=== PATIENT | male | born 1965 | race Caucasian/White ===

== ENCOUNTER 2019-02-06 18:08 | Inpatient (IN) | payer OTHER, BC ==
[~2019-02-06] VITALS: Ht 167.6 cm; Wt 81.5 kg
[~2019-02-06 18:08] MED LIST: CEPH500 PO; Cleocin HCl150 MG PO; HYDACE10B PO; HYDACE5 PO; NAPR500 PO; OXYACE5T PO; PENVK500 PO; PROM25 PO; Percocet 5-3251 EACH PO; RXOXYACE PO; TRAM50 PO; VITAMINS
[2019-02-06] MEDS ORDERED: OMEPRAZOLE20 MG PO (18:51)
[2019-02-06] MEDS ORDERED: OXYC5 PO (18:52)
[2019-02-06 19:00] LABS: BASOPHILS ABSOLUTE AUTO 0.05 K/mm3 (0.00-0.23); BASOPHILS PERCENT AUTO 1 % (0-2); Hematocrit 37.2 % (37.0-53.0); Hemoglobin 12.5 g/dL (13.5-17.5); Mean Corpuscular HGB 30.1 pg (26.0-34.0); Mean Corpuscular HGB Conc 33.6 g/dL (31.5-36.5); Mean Corpuscular Volume 90 fL (80-100); Mean Platelet Volume 10.8 fL (9.1-12.4); Platelet Count 172 K/mm3 (150-400); RDW Standard Deviation 46.6 fL (35.1-46.3); Red Blood Cell Count 4.15 M/mm3 (4.30-5.90); White Blood Cell Count 10.93 K/mm3 (4.00-11.30)
[2019-02-06 19:04] LABS: Influenza A Negative (NEGATIVE); Influenza B Negative (NEGATIVE)
[2019-02-06 19:07] LABS: EOSINOPHILS ABSOLUTE AUTO 0.06 K/mm3 (0.00-0.68); EOSINOPHILS PERCENT AUTO 1 % (0-6); IMMATURE GRAN ABSOLUTE AUTO 0.09 K/mm3 (0.00-0.10); IMMATURE GRAN PERCENT AUTO 1 % (0-1); LYMPHOCYTES ABSOLUTE AUTO 0.34 K/mm3 (0.84-5.20); LYMPHOCYTES PERCENT AUTO 3 % (21-46); MONOCYTES ABSOLUTE AUTO 0.22 K/mm3 (0.16-1.47); MONOCYTES PERCENT AUTO 2 % (4-13); NEUTROPHILS ABSOLUTE AUTO 10.17 K/mm3 (1.96-9.15); NEUTROPHILS PERCENT AUTO 93 % (41-73)
[2019-02-06 19:19] LABS: Alanine Aminotransfer (ALT/SGP 32 U/L (12-78); Albumin, Blood 2.3 g/dL (3.4-5.0); Albumin/Globulin Ratio 0.6 (0.8-1.8); Alk Phos 138 U/L (50-136); Anion Gap 8 mmol/L (6-16); Aspartate Aminotrans (AST/SGOT 16 U/L (12-37); Bilirubin, Total 1.1 mg/dL (0.1-1.0); Blood Urea Nitrogen 15 mg/dL (8-24); Bun/Creatinine Ratio 13.6 (12.0-20.0); CO2, Blood 23 mmol/L (21-32); Calcium, Blood 8.7 mg/dL (8.5-10.1); Chloride, Blood 104 mmol/L (98-108); Glomerular Filtration Rate >60 (60-); Glucose, Blood 151 mg/dL (70-99); Potassium, Blood 3.9 mmol/L (3.5-5.5); Sodium, Blood 135 mmol/L (136-145); Total Protein, Blood 6.3 g/dL (6.4-8.2); Troponin I <0.015 ng/mL (0.000-0.040)
[2019-02-06] MEDS ORDERED: IBU800 MG PO (19:40)
[2019-02-06] MEDS ORDERED: SERT100 PO (20:23)
[2019-02-06] MEDS ORDERED: ACET500 PO (20:24)
[2019-02-06] MEDS ORDERED: BUPR75 PO (20:48)
[2019-02-06] MEDS ORDERED: Prazosin HCl2 MG PO (20:50)
[2019-02-06] MEDS ORDERED: Hydroxyzine HCl50 MG PO (20:50)
[2019-02-07 04:40] LABS: Alanine Aminotransfer (ALT/SGP 29 U/L (12-78); Albumin, Blood 2.1 g/dL (3.4-5.0); Albumin/Globulin Ratio 0.5 (0.8-1.8); Alk Phos 149 U/L (50-136); Anion Gap 6 mmol/L (6-16); Aspartate Aminotrans (AST/SGOT 14 U/L (12-37); Bilirubin, Total 1.1 mg/dL (0.1-1.0); Blood Urea Nitrogen 15 mg/dL (8-24); Bun/Creatinine Ratio 13.3 (12.0-20.0); CO2, Blood 25 mmol/L (21-32); Calcium, Blood 8.5 mg/dL (8.5-10.1); Chloride, Blood 107 mmol/L (98-108); Creatinine, Blood 1.13 mg/dL (0.60-1.20); Glomerular Filtration Rate >60 (60-); Glucose, Blood 165 mg/dL (70-99); Potassium, Blood 3.7 mmol/L (3.5-5.5); Sodium, Blood 138 mmol/L (136-145); Total Protein, Blood 6.1 g/dL (6.4-8.2)
--- NOTE | 2019-02-07 05:33 | NUR ---
SHIFT SUMMARY PT NEW ER ADMIT THIS EVENING. PT FEELING OVERALL VERY ILL. SOME DIFFICULTLY WITH BREATHING. OXYGEN TURNED UP TO 4 L O2 NC FROM 1 L O2 NC TO KEEP O2 SATS GREATER THAN 90%. APPEARS MORE COMFORTABLE AT THIS TIME. PT ALSO TACHYCARDIC THIS AM WITH HEART RATE IN THE 120'S AND SLIGHTLY FEBRILE AT 100.[address] HASTINGS[address] TYLENOL ORDERED AND GIVEN. OTHERWISE NO NEW ORDERS AT THIS TIME. PT TEMPERATURE CAME DOWN TO 99.3. PT OVERALL FEELING SLIGHTLY BETTER. PT MEDICATED X 2 FOR GENERALIZED "BONE" PAIN WITH 5 MG ROXICODONE. PT RESTING IN BED AT THIS TIME. WILL CONTINUE TO MONITOR.
--- NOTE | 2019-02-07 16:29 | NUR ---
SHIFT SUMMARY: THIS NURSE TOOK OVER CARE FOR THIS PT THIS AFTERNOON. UPON ASSESSMENT PT IS SOB, CLAMMY, DIAPHORETIC AND HAS A LOW GRADE TEMP. HIS O2 SAT IS IN THE MID TO HIGH 80'S ON 4 LPM AND PT PULSE WAS IN THE 108-110 RANGE. THE OFFGOING RN STATED THAT HE HAS BEEN RECEIVING IV ABO FOR A DX OF PNA. RT WAS CALLED TO ROOM AND FELT WITH PT DX IT WAS OK TO CONTINUE WITH CURRENT TX AND CONTINUE TO MONITOR. O2 WAS BUMPED UP TO 5 LPM AND HOB ELEVATED. AND O2 CAME UP TO THE HIGH 80'S TO LOW 90'S. THIS NURSE ROUNDED ON THE PT WITHIN 30 TO FIND HAD NO IMPROVEMENT. DR CORRAL WAS NOTIFIED AND GAVE ORDERS FOR A BREATHING TX FROM RT, TELE AND A BOLUS OF IV FLUIDS. THE PT AND WERE NOTIFIED OF THIS TX PLAN AND THANKFUL. RT ARRIVED TO ROOM FOR RT TX AND PT IS RESTING IN BED WITH AT BEDSIDE. ALSO ORDERED A PROJECTOR BOOTH OPERATOR CONSULT WHICH WAS ATTEMPTED TO BE CALLED IN BUT THE DOCTOR WAS IN A PROCEDURE AND ASKED THAT THIS NURSE CALL BACK IN 20 MINUTES. CHARGE NURSE IS AWARE.
--- NOTE | 2019-02-07 18:04 | NUR ---
RECREATION THERAPIST SAW PT AT BEDSIDE AND ORDERED A BIPAP. DOCTOR ALSO ORDERED PT TO BE TRANSFERRED TO PCU. PT AND FAMILY WERE NOTIFIED OF TRANSFER AND TX PLAN AND ARE IN AGREEMENT. REPORT WAS CALLED TO PCU NURSE MUNA. ALL BELONGINGS WERE SENT WITH PT. CHARGE NURSE IS AWARE. PT WAS TRANSFERRED WITH X 2 ASSIST IN HIS BED TO PCU.
--- NOTE | 2019-02-07 18:20 | NUR ---
TRANSFER TO PCU 8 REPORT RECEIVED FROM LARRY ARMAS. PT ARRIVED VIA BED ACCOMPANIED BY RN AND R/T. PT AWAKE AND ALERT. VOICE VERY WEAK, BREATHLESS. ZAIN R/T STARTED PT ON BIPAP. PT TOLERATING WELL SO FAR. FAMILY AT BEDSIDE. CONTINUE POT.
[2019-02-07 21:41] LABS: PCO2 Arterial 30.2 mmHg (35-45); PO2 Arterial 113 mmHg (80-100); pH Blood Arterial 7.46 (7.35-7.45)
--- NOTE | 2019-02-07 21:46 | NUR ---
UPDATE PATIENT ANXIOUS AND RESPRITORY RATE INCREASING TO THE 40'S-50'S. ATIVAN GIVEN WITH NO RESULTS. PATIENT CONTINUES TO BE VERY ANXIOUS AND WILL NOT TOLERATE BIPAP. PATIENT STATING THAT HE IS FEELING VERY ANXIOUS AND JUST CANNOT WEAR THE MASK RIGHT NOW. NURSE PRACTIONER HENRIQUE IN TO SEE PATIENT, DR ALVARADO INTO SEE PATIENT AT THIS TIME. PATIENT'S HEART RATE IS IN THE ONE TEENS, RESPIRATION RATE CONTINUES TO BE IN THE 40'S-50'S, AND PATIENT'S TEMP IS ELEVATED (SEE VITAL SIGNS). PATIENT CURRENTLY ON 15 LITERS VIA NON REBREATHER. ICU TRANSFER ORDER RECIEVED.
--- NOTE | 2019-02-07 22:07 | NUR ---
UPDATE REPORT GIVEN TO CHANDA AMADOR.
--- NOTE | 2019-02-07 22:20 | NUR ---
UPDATE PATIENT TRANSFERED TO ICU 11 BY CHARGE NURSE, TECH, AND RESPRITORY THERAPIST. PATIENT STATED THERE WAS NOBODY HE WANTED US TO CALL AT THIS TIME. ALL BELONINGS GATHERED AND SENT WITH PATIENT.
[2019-02-08 05:06] LABS: BASOPHILS ABSOLUTE AUTO 0.02 K/mm3 (0.00-0.23); BASOPHILS PERCENT AUTO 0 % (0-2); Hematocrit 29.7 % (37.0-53.0); Mean Corpuscular HGB 29.8 pg (26.0-34.0); Mean Corpuscular HGB Conc 33.7 g/dL (31.5-36.5); Mean Corpuscular Volume 88 fL (80-100); Platelet Count 137 K/mm3 (150-400); RDW Coefficient Variation 14.8 % (11.7-14.2); RDW Standard Deviation 47.8 fL (35.1-46.3); Red Blood Cell Count 3.36 M/mm3 (4.30-5.90); White Blood Cell Count 5.05 K/mm3 (4.00-11.30)
[2019-02-08 05:07] LABS: EOSINOPHILS PERCENT AUTO 0 % (0-6); IMMATURE GRAN ABSOLUTE AUTO 0.27 K/mm3 (0.00-0.10); IMMATURE GRAN PERCENT AUTO 5 % (0-1); LYMPHOCYTES ABSOLUTE AUTO 0.36 K/mm3 (0.84-5.20); LYMPHOCYTES PERCENT AUTO 7 % (21-46); MONOCYTES ABSOLUTE AUTO 0.13 K/mm3 (0.16-1.47); MONOCYTES PERCENT AUTO 3 % (4-13); NEUTROPHILS ABSOLUTE AUTO 4.27 K/mm3 (1.96-9.15); NEUTROPHILS PERCENT AUTO 85 % (41-73)
[2019-02-08 05:21] LABS: Anion Gap 8 mmol/L (6-16); Blood Urea Nitrogen 20 mg/dL (8-24); Bun/Creatinine Ratio 16.7 (12.0-20.0); CO2, Blood 22 mmol/L (21-32); Calcium, Blood 7.5 mg/dL (8.5-10.1); Chloride, Blood 107 mmol/L (98-108); Glomerular Filtration Rate >60 (60-); Glucose, Blood 161 mg/dL (70-99); Sodium, Blood 137 mmol/L (136-145)
[2019-02-08 05:25] LABS: BAND PERCENT MAN 3 % (0-8); BASOPHILS PERCENT MAN 0 % (0-2); EOSINOPHILS PERCENT MAN 0 % (0-6); LYMPHOCYTES ABSOLUTE MAN 0.15 K/mm3 (0.84-5.20); LYMPHOCYTES PERCENT MAN 3 % (21-46); MONOCYTES PERCENT MAN 2 % (4-13); NEUTROPHILS ABSOLUTE MAN 4.79 K/mm3 (1.96-9.15); SEG NEUTROPHILS PERCENT MAN 92 % (41-73); TOTAL CELLS COUNTED 100
[2019-02-08 06:17] LABS: Base Excess Venous -6.4 mmol/L; PCO2 Venous 55.5 mmHg (38-42); PO2 Venous 76.8 mmHg (38-42)
[2019-02-08 06:45] LABS: Troponin I 1.87 ng/mL (0.000-0.040)
--- NOTE | 2019-02-08 08:14 | NUR ---
PUBLIC [facility]ALTH NOTIFIED PER EMERGENCY DISEASE REPORTING RULE FOR SUSPECTED JULY. SPOKE WITH CHARLI DOMINGUEZ VIA PHONE AT [phone].
[2019-02-08 08:21] LABS: Bicarbonate Venous 18.7 mmol/L (24.0-30.0); PCO2 Venous 63.4 mmHg (38-42); PO2 Venous 57.5 mmHg (38-42); pH Blood Venous 7.16 (7.34-7.37)
--- NOTE | 2019-02-08 08:33 | NUR ---
SHIFT SUMMARY RECEIVED PATIENT FROM PCU @ 22:15, ON BIPAP 03/20, 35%. STARTED QUICKLY ON PRECEDEX GTT FOR BIPAP COMPLIANCE, TOLERATED WELL. 01:20 RESPIRATORY RATE 50S DESPITE BEING 0.8 ON PRECEDEX. VOICED CONCERN FOR INFLAMMATION, HOWEVER NEURO STATUS REMAINS THE SAME. VITALS UNCHANGED. NO NEW ORDERS RECEIVED AT THIS TIME. 02:[address] VILLALOBOS, PT. RESPIRATORY RATE IN THE 60S, MAXED ON PRECEDEX. WILL COME TO INTUBATE. FOLLOWING DRUGS WERE GIVEN DURING INTUBATION 03:12 ETOMIDATE 20MG 03:13 SUCCINYLCHOLINE 150MG 03:14 VERSED 1MG 03:15 VERSED 1MG 03:23 2MG PT INTUBATED @ 03:17 USING A GLIDESCOPE. #7.5 TUBE WAS PLACED ORIGINALLY 26 @ LIP, WITHDRAWN 1 CM ~ 05:00 R/T CHEST XRAY. NUMEROUS ATTEMPTS WERE MADE TO CALL FAMILY WITH UPDATES TO NO AVAIL. NIMBEX WAS TO BE STARTED PER DR. WASHINGTON, REQUESTED DR. VILLALOBOS PLACE CENTRAL LINE, WAS PLACED IN RIGHT IJ. PT HYPOTENSIVE AFTER PROCEDURES, STARTED ON LEVOPHED DRIP. NIMBEX WAS STARTED @ 03:50, TITRATED UP TO 3 MCG/KG/MIN FOR TRAIN OF 4 = 2/4. OG WAS PLACED TO L.I.S. TEMP KIMBALL PLACED. 05:30 NOTED PT TEMPERATURE TO BE 103.5 DEGREES CORE TEMP. PLACED ON COOLING DEVICE, CONTROL TEMP OF 99 DEGREES. IT HAS BEEN A PLEASURE TAKING CARE OF THIS PATIENT.
--- NOTE | 2019-02-08 10:00 | NUR ---
Stopped cooling machine and disconnected as temp was dropping quicker to 95.[address] Romero was in with family at 0900 and no new orders. Started warming process aat 0935 for temp 94.6 and not much increase as of yet. Family at bedside. Dr Cantu came and gave family another update. Reduced FiO2 on vent settings to 60% . Drpoped Levophed in titration to 11 mcg/min and MAP remains >65. Nimbex titrated down to 2.0 mcg/kg/min to maintain 4/4 train of four. No other changes
[2019-02-08 11:45] LABS: Base Excess Venous -5.8 mmol/L; Bicarbonate Venous 18.9 mmol/L (24.0-30.0); PCO2 Venous 59.2 mmHg (38-42); PO2 Venous 47.4 mmHg (38-42)
[2019-02-08 11:46] LABS: pH Blood Venous 7.19 (7.34-7.37)
--- NOTE | 2019-02-08 11:57 | NUR ---
reduced peep to 12.0 for sats 96% at 1017. dropped Levophed to 8 mcg/min for systolic greater than 100 and MAP >65 and decreased Nimbex to 2.0 mcg/kg/min at 1030. FiO2 reduced to 50% for continued sats > 94%, Propofol at 45 mcg/kg/min at 1045. Bear hugger continues and temp up to 96.6 per lee temp.
--- NOTE | 2019-02-08 12:46 | NUR ---
Started tube feeding Vital High Protien at 15ml/hr and 30ml water every 4 hours as ordered. No changes in vent settings or gtt's. Family has been in and out.
--- NOTE | 2019-02-08 15:28 | NUR ---
Reduced FiO2 to 40% at 1430 and sats low 90%'s. No other current changes to vent or gtts. His temp continues 96.1 lee probe and 96.4 rectal probe and has not been any exchange specialist the last few hours. He has beading sweat on head continually wiped off.
--- NOTE | 2019-02-08 16:17 | NUR ---
Reduced Nimbex to 1.5 mcg/kg/min and Propofol to 40 mcg/kg/min for BIS 29 and 2/4 train of four. VSS No vent changes.
[2019-02-08 17:30] LABS: Vancomycin, Trough 15.4 ug/mL (5.0-10.0)
--- NOTE | 2019-02-08 17:57 | NUR ---
Had Nimbex at 1mcg/kg/min and Propofol decreased to 30 mcg/kg/min and still 1-2/4 train of four. Placed Nimbex on standby and left Propofol at 30 mcg/kg/min and finally got 4/4 train of four. BIS 40-55. Reduced PEEP to 8.0 with sats still 93%. Patient started to stack breaths and increased Propofol to 50 with little change and the restarted nimbex at 1 mcg/kg/min and has started to breath a little better on vent. He continues to have beading sweat on forhead and temp 96.6-8.
--- NOTE | 2019-02-08 19:00 | NUR ---
ASSUMED CARE ASSUMED CARE OF PATIENT. REMAINS INTUBATED- AC 30, TV 350, PEEP 8, FIO2 40%. RR 30. SEDATED WITH PROPOFOL @ 40MCG/KG/MIN AND FENTANYL 50MCG/HR. NIMBEX INFUSING @ 1MCG/KG/MIN- T04 IS 3/4. ATTEMPTS TO OPEN EYES. NO SPONTANEOUS MOVEMENT NOTED OTHER THAN MINIMAL TILT OF HEAD. BIS MONITOR SHOWS 40s. NO COUGH, NO GAG. MONITOR SHOWS NSR, RATE 70s. BP STABLE WITH LEVOPHED @ 6MCG/MIN. TEMP 97.2F VIA KIMBALL TEMP PROBE. COLOR PALE, SKIN CLAMMY. OG WITH VITAL HIGH PROTEIN INFUSING @ GOAL RATE OF 15CC/HR AND WITH 30CC H20 FLUSH Q4H. KIMBALL PATENT AND DRAINING TO GRAVITY. SEE SHIFT ASSESSMENT FOR FULL ASSESSMENT.
--- NOTE | 2019-02-09 04:05 | NUR ---
NIMBEX/PROPOFOL VENTILATOR FREQUENTLY ALARMING D/T PT STACKING BREATHS. RR 35-40. PT NODS HEAD YES/NO. SQUEEZES HANDS TO COMMAND. BIS MONITOR SHOWS 60s. NODS HEAD YES WHEN ASKED IF HE IS HURTING AND IF HE FEELS LIKE HE'S HAVING A HARD TIME BREATHING. FENTANYL CONTINUES @ 50MCG/HR. NIMBEX INCREASED TO 2MCG/KG/MIN AND PROPOFOL INCREASED TO 45MCG/KG/MIN.
[2019-02-09 04:32] LABS: BASOPHILS ABSOLUTE AUTO 0.02 K/mm3 (0.00-0.23); BASOPHILS PERCENT AUTO 0 % (0-2); Hematocrit 32.1 % (37.0-53.0); Hemoglobin 10.3 g/dL (13.5-17.5); LYMPHOCYTES ABSOLUTE AUTO 0.61 K/mm3 (0.84-5.20); LYMPHOCYTES PERCENT AUTO 11 % (21-46); MONOCYTES ABSOLUTE AUTO 0.43 K/mm3 (0.16-1.47); MONOCYTES PERCENT AUTO 8 % (4-13); Mean Corpuscular HGB 29.5 pg (26.0-34.0); Mean Corpuscular HGB Conc 32.1 g/dL (31.5-36.5); Mean Platelet Volume 10.9 fL (9.1-12.4); Platelet Count 129 K/mm3 (150-400); RDW Coefficient Variation 15.9 % (11.7-14.2); RDW Standard Deviation 54.3 fL (35.1-46.3); Red Blood Cell Count 3.49 M/mm3 (4.30-5.90); White Blood Cell Count 5.77 K/mm3 (4.00-11.30)
[2019-02-09 04:33] LABS: EOSINOPHILS PERCENT AUTO 0 % (0-6); IMMATURE GRAN ABSOLUTE AUTO 0.31 K/mm3 (0.00-0.10); IMMATURE GRAN PERCENT AUTO 5 % (0-1); Mean Corpuscular Volume 92 fL (80-100); NEUTROPHILS PERCENT AUTO 76 % (41-73)
[2019-02-09 04:50] LABS: Alanine Aminotransfer (ALT/SGP 24 U/L (12-78); Albumin, Blood 1.6 g/dL (3.4-5.0); Albumin/Globulin Ratio 0.4 (0.8-1.8); Alk Phos 102 U/L (50-136); Anion Gap 6 mmol/L (6-16); Aspartate Aminotrans (AST/SGOT 23 U/L (12-37); Bilirubin, Total 0.5 mg/dL (0.1-1.0); Blood Urea Nitrogen 26 mg/dL (8-24); CO2, Blood 25 mmol/L (21-32); Calcium, Blood 8.1 mg/dL (8.5-10.1); Chloride, Blood 113 mmol/L (98-108); Creatinine, Blood 1.13 mg/dL (0.60-1.20); Glomerular Filtration Rate >60 (60-); Glucose, Blood 216 mg/dL (70-99); Magnesium, Blood 2.5 mg/dL (1.6-2.4); Phosphorus, Blood 2.4 mg/dL (2.5-4.9); Potassium, Blood 3.8 mmol/L (3.5-5.5); Sodium, Blood 144 mmol/L (136-145); Total Protein, Blood 5.6 g/dL (6.4-8.2)
[2019-02-09 04:56] LABS: BAND PERCENT MAN 5 % (0-8); BASOPHILS PERCENT MAN 0 % (0-2); EOSINOPHILS PERCENT MAN 0 % (0-6); LYMPHOCYTES ABSOLUTE MAN 0.46 K/mm3 (0.84-5.20); LYMPHOCYTES PERCENT MAN 8 % (21-46); METAMYELOCYTE ABSOLUTE MAN 0.05 K/mm3 (0.00-0.00); METAMYELOCYTE PERCENT MAN 1 % (0-0); MONOCYTES ABSOLUTE MAN 0.17 K/mm3 (0.16-1.47); MONOCYTES PERCENT MAN 3 % (4-13); MYELOCYTE ABSOLUTE MAN 0.11 K/mm3 (0.00-0.00); MYELOCYTE PERCENT MAN 2 % (0-0); NEUTROPHILS ABSOLUTE MAN 4.96 K/mm3 (1.96-9.15); SEG NEUTROPHILS PERCENT MAN 81 % (41-73); TOTAL CELLS COUNTED 100
--- NOTE | 2019-02-09 06:33 | NUR ---
SHIFT SUMMARY NO ACUTE CHANGES DURING NOC. REMAINS INTUBATED- AC 20, TV 350, PEEP 8, FIO2 BETWEEN 40-55%. FIO2 NOW @ 55%. RR 30 TO MID-30s. SEDATED WITH PROPOFOL BETWEEN 35-45MCG/KG/MIN- NOW INFUSING @ 45MCG/KG/MIN. BIS MONITOR BETWEEN 30-60s. NIMBEX INFUSED BETWEEN 1-2MCG/KG/MIN TO ASSIST WITH VENTILATOR COMPLIANCE- NOW INFUSING @ 2MCG/KG/MIN. FENTANYL GTT CONTINUES @ 50MCG/HR PER ORDER. LEVOPHED REMAINS OFF. VITAL HIGH PROTEIN INFUSING @ GOAL RATE OF 15CC/HR VIA OG. KIMBALL PATENT AND DRAINING TO GRAVITY. AFEBRILE. WILL REPORT TO DAY SHIFT RN WHEN AVAILABLE.
--- NOTE | 2019-02-09 07:27 | NUR ---
Recieved report from Julianna ARMAS. Patient sedated, paralyzed and intubated. She hyas 7.5 ET and 25 cm at lips with vent settings AC 30, TV 350, FiO2 55%, PEEP 8.0 with sats 90%. OG in place and infusing VHP at 15ml/hr goal rate with 30ml Q4 water flushes. He has 20ga RAC and LH, both dressings intact and sites WNL's and are dludhes and SL'd. He also has RIJ quad lumen central line infusing NS TKO, Propofol 40 mcg/kg/min, Nimbex 2 mcg/kg/min, Fentanyl 50mcg/hr, and Leviphed remains off with systolic 90's and MAP >65. He has 16Fr. Temp lee draining to gravity with temp of 97.2 self maintained. He has 4/4 train of four and BIS 29-35.
[2019-02-09 08:21] LABS: Base Excess Venous -1.7 mmol/L; Bicarbonate Venous 22.4 mmol/L (24.0-30.0); PCO2 Venous 54.7 mmHg (38-42); PO2 Venous 50.6 mmHg (38-42); pH Blood Venous 7.27 (7.34-7.37)
--- NOTE | 2019-02-09 10:24 | NUR ---
Dr. Cantu by to see patient and talked with family. Reduced precedex to 1 mcg/kg/min with BIS 45 and TO4 4/4. Patient diaresing well already 600ml this shift. Temp 97.4. VSS with Levophed off.
--- NOTE | 2019-02-09 12:37 | NUR ---
Adjusted TF VHP to 25ml/hr for max goal rate. Patient continues on 40 mcg/kg/min of Propofol and 1 mcg/kg/min of Nimbex and knods to questions odes not open eyes. Patient increased to 65% Fio2 and sats 89-92%. Jay by and wants Nimbex on to help with breathing patterns. Levophed remains off and systolic currently 120-130's and MAP > 65.
--- NOTE | 2019-02-09 16:09 | NUR ---
Patient started to get restless and increased Propofol to 55 mcg/kg/min and Nimbex to 2 mcg/kg/min per Dr Cantu. Patient resting quietly and not over breathing vent. Decreased Fentanyl to 25 mcg/hr per order.
--- NOTE | 2019-02-09 17:17 | NUR ---
Dr Cantu by and talked with . He made vent setting changes, now AC 30, TV 350, FiO2 65%, Peep 10.0 and sats 93%. Family at bed side. He has been a little hypertensive 140-150 systolic, and Dr Cantu informed and no new orders. Fentanyl at 25mcg/hr and NS TKO. TO4 /, BIS 46.
[2019-02-09 18:15] LABS: Vancomycin, Trough 19.1 ug/mL (5.0-10.0)
--- NOTE | 2019-02-09 19:00 | NUR ---
ASSUMED CARE ASSUMED CARE OF PATIENT. REMAINS INTUBATED- AC 30, TV 350, PEEP 10, FIO2 60%. RR 30. SEDATED WITH PROPOFOL @ 55MCG/KG/MIN. BIS 30s-40s. PARALYZED WITH NIMBEX @ 2MCG/KG/MIN. TO4 1/. NO SPONTANEOUS MOVEMENT. RUBY, 3MM. NO GAG OR COUGH NOTED. FENTANYL MACHINE MAINTENANCE SUPERVISOR @ 25MCG/HR PER ORDER. MONITOR SHOWS NSR, RATE 80-90s. HYPERTENSIVE WITH SBP 160-170s. AFEBRILE. OG WITH VITAL HIGH PROTEIN INFUSING @ GOAL RATE OF 25CC/HR. 30CC H20 FLUSH Q4H. KIMBALL PATENT AND DRAINING YELLOW URINE. SEE SHIFT ASSESSMENT FOR FULL ASSESSMENT.
--- NOTE | 2019-02-09 20:50 | NUR ---
HTN/HYPERGLYCEMIA CALL TO DR. VALDEZ REGARDING SBP 170-180s AND RECENT BLOOD GLUCOSE 200-280s. NEW ORDERS RECEIVED AT THIS TIME FOR TREATMENT.
--- NOTE | 2019-02-10 06:06 | NUR ---
SHIFT SUMMARY NO ACUTE CHANGES DURING NOC. INTUBATED- AC 30, TV 350, PEEP 10, FIO2 BETWEEN 60-80% DURING SHIFT. FIO2 NOW @ 70%. SEDATED WITH PROPOFOL AT 55MCG/KG/MIN- BIS BETWEEN 30-40s. NIMBEX INFUSING @ 2MCG/KG/MIN- TO4 04/16. RUBY, 3MM. MONITOR SHOWS NSR, RATE 80-90s. HYPERTENSIVE AT TIMES WITH BP 160-170s. PER DR. VALDEZ, IT IS OKAY TO MAINTAIN SBP <180. AFEBRILE. OG WITH VITAL HIGH PROTEIN @ GOAL RATE OF 25CC/HR. RESIDUALS 0-20. INCONTINENT OF LOOSE BROWN STOOL X 3 DURING SHIFT. KIMBALL PATENT AND DRAINING CLEAR YELLOW URINE. WILL REPORT TO DAY SHIFT RN WHEN AVAILABLE.
[2019-02-10 06:27] LABS: Hematocrit 34.8 % (37.0-53.0); Hemoglobin 11.8 g/dL (13.5-17.5); Mean Corpuscular HGB 30.8 pg (26.0-34.0); Mean Corpuscular HGB Conc 33.9 g/dL (31.5-36.5); Mean Corpuscular Volume 91 fL (80-100); Mean Platelet Volume 11.6 fL (9.1-12.4); NRBC ABSOLUTE 0.05 K/mm3 (0.00-0.02); NRBC Auto 0.4 /100 WBC (0.0-0.2); Platelet Count 170 K/mm3 (150-400); RDW Coefficient Variation 16.2 % (11.7-14.2); RDW Standard Deviation 54.7 fL (35.1-46.3); Red Blood Cell Count 3.83 M/mm3 (4.30-5.90)
[2019-02-10 07:06] LABS: Alanine Aminotransfer (ALT/SGP 28 U/L (12-78); Albumin, Blood 1.9 g/dL (3.4-5.0); Albumin/Globulin Ratio 0.4 (0.8-1.8); Alk Phos 116 U/L (50-136); Anion Gap 7 mmol/L (6-16); Aspartate Aminotrans (AST/SGOT 25 U/L (12-37); Bilirubin, Total 0.6 mg/dL (0.1-1.0); Blood Urea Nitrogen 39 mg/dL (8-24); Bun/Creatinine Ratio 32.5 (12.0-20.0); CO2, Blood 29 mmol/L (21-32); Chloride, Blood 112 mmol/L (98-108); Globulin, Blood 4.3 g/dL (2.2-4.0); Glomerular Filtration Rate >60 (60-); Glucose, Blood 236 mg/dL (70-99); Magnesium, Blood 2.6 mg/dL (1.6-2.4); Phosphorus, Blood 3.4 mg/dL (2.5-4.9); Potassium, Blood 3.9 mmol/L (3.5-5.5); Sodium, Blood 148 mmol/L (136-145); Total Protein, Blood 6.2 g/dL (6.4-8.2)
[2019-02-10 07:20] LABS: BAND PERCENT MAN 15 % (0-8); BASOPHILS PERCENT MAN 0 % (0-2); EOSINOPHILS PERCENT MAN 0 % (0-6); LYMPHOCYTES ABSOLUTE MAN 0.69 K/mm3 (0.84-5.20); LYMPHOCYTES PERCENT MAN 5 % (21-46); METAMYELOCYTE ABSOLUTE MAN 0.55 K/mm3 (0.00-0.00); METAMYELOCYTE PERCENT MAN 4 % (0-0); MONOCYTES ABSOLUTE MAN 0.82 K/mm3 (0.16-1.47); MONOCYTES PERCENT MAN 6 % (4-13); MYELOCYTE ABSOLUTE MAN 0.13 K/mm3 (0.00-0.00); MYELOCYTE PERCENT MAN 1 % (0-0); NEUTROPHILS ABSOLUTE MAN 11.59 K/mm3 (1.96-9.15); SEG NEUTROPHILS PERCENT MAN 69 % (41-73); TOTAL CELLS COUNTED 100
--- NOTE | 2019-02-10 07:45 | NUR ---
[facility] VENT SETTINGS:AC 30, TV 350, FIO2 70%, PEEP 10. PROPOFOL AT 50MCG, NIMBEX AT 2MCG, FENT 50MCG/HR. TOF 0/4. BIS 40-70. PT IS NOT OVER BREATHING VENT. NO GAG, SWALLOW, COUGH. PT APPEARS SUFFICIANTLY PARALYZED. SATS 96%.
[2019-02-10 08:52] LABS: Base Excess Venous 5.9 mmol/L; Bicarbonate Venous 28.2 mmol/L (24.0-30.0); PCO2 Venous 62.8 mmHg (38-42); PO2 Venous 89.8 mmHg (38-42); pH Blood Venous 7.32 (7.34-7.37)
--- NOTE | 2019-02-10 09:52 | NUR ---
DR LEE IN TO SEE PT; UPDATE GIVEN. BP LABILE W HTN AT TIMES; DR AWARE. DR LEE DECREASED FIO2 TO 50%. PT WITH LARGE AMT OF LIQUID STOOL, FLEXI SEAL PLACE. CDIFF ORDERED AND SENT PER
--- NOTE | 2019-02-10 12:07 | NUR ---
PT'S FIO2 HAS BEEN TITRATED DOWN TO 40%, PT TOLERATING THIS WITH SATS >90%. FAMILY AT BESIDE; CDIFF NEGATIVE. NO OTHER CHANGES.
--- NOTE | 2019-02-10 15:18 | NUR ---
DR LEE IN TO CHECK ON PT; UPDATE GIVEN, INCLUDING LABILE BP W BP RANGING 140-180. NO NEW ORDERS.
--- NOTE | 2019-02-10 17:46 | NUR ---
PT BREATHING OVER VENT, HTN, DIAPHORETIC. NIMBEX INCREASED TO 3MCG, FENT 50MCG IVP. PT REPOSITIONED. PT'S AT BEDSIDE.
--- NOTE | 2019-02-10 19:00 | NUR ---
ASSUMED CARE ASSUMED CARE OF PATIENT. REMAINS INTUBATED- AC 20, TV 350, PEEP 10, FIO2 40%. RR 30. SEDATED WITH PROPOFOL @ 50MCG/KG/MIN AND FENTANYL 50MCG/HR. BIS 35-40. NIMBEX INFUSING @ 3MCG/KG/MIN. T04 0/4. RUBY, 3MM, SLUGGISH. MONITOR SHOWS ST, RATE 100-105. TEMP 100.0F VIA KIMBALL TEP PROBE. OG WITH VITAL HIGH PROTEIN @ GOAL RATE OF 25CC/HR. RECTAL TUBE IN PLACE WITH LIQUID BROWN DRAINAGE. KIMBALL PATENT AND DRAINING CLEAR YELLOW URINE. SEE SHIFT ASSESSMENT FOR FULL ASSESSMENT.
--- NOTE | 2019-02-10 19:22 | NUR ---
DR LEE AT BEDSIDE TO CHECK ON PT. FULL UPDATE GIVEN INCLUDING INCREASE IN NIMBEX TO 3MCG. BP REMAINS ELEVATED/LABILE. PT TOF 0/4, BIS MONITOR 30'S.
--- NOTE | 2019-02-11 05:44 | NUR ---
SHIFT SUMMARY NO ACUTE CHANGES DURING NOC. REMAINS INTUBATED- AC 30, TV 350, PEEP 10, FIO2 40%. RR 30. SEDATED WITH PROPOFOL @ 50MCG/KG/MIN AND FENTANYL 50MCG/HR. BIS 30s-50s. NIMBEX CONTINUES @ 3MCG/KG/MIN. TO4 IS 0/4. SBP 150-170s. MONITOR SHOWS NSR-ST, RATE 90s-100s. TMAX 100.0F VIA KIMBALL TEMP PROBE. OG WITH VITAL HIGH PROTEIN AT GOAL RATE OF 25CC/HR. RESIDUALS <10CC. RECTAL TUBE IN PLACE WITH 700CC LIQUID BROWN STOOL. KIMBALL PATENT AND DRAINING CLEAR YELLOW URINE. AM LABS PENDING. WILL REPORT TO DAY SHIFT RN WHEN AVAILABLE.
[2019-02-11 06:52] LABS: Anion Gap 3 mmol/L (6-16); Blood Urea Nitrogen 37 mg/dL (8-24); Bun/Creatinine Ratio 39.7 (12.0-20.0); CO2, Blood 32 mmol/L (21-32); Calcium, Blood 7.6 mg/dL (8.5-10.1); Chloride, Blood 114 mmol/L (98-108); Creatinine, Blood 0.93 mg/dL (0.60-1.20); Glomerular Filtration Rate >60 (60-); Glucose, Blood 245 mg/dL (70-99); Magnesium, Blood 2.5 mg/dL (1.6-2.4); Sodium, Blood 149 mmol/L (136-145)
--- NOTE | 2019-02-11 11:12 | NUR ---
TITRATED NIBEX DRIP OFF. PT BEGAN TO OVERBREATH VENT, IRREGULAR RATE AND APPEARED UNCOMFORTABLE. PT DID NOT FOLLOW ANY COMMANDS. DR SANTA NOTIFIED AND ORDERS RECEIVED TO INCREASE PT'S SEDATION. WILL REASSESS LATER TODAY IF PT WILL TOLERATE A SEDATION HOLIDAY.
--- NOTE | 2019-02-11 13:58 | NUR ---
RR 30, SPO2 91%, HR 110'S, TEMP 101.5. MEDICATED WITH ATIVAN FOR COMFORT, FAN ON FOR FEVER. VENT AND GTT SETTINGS UNCHANGED. PT'S AT BEDSIDE.
--- NOTE | 2019-02-11 18:56 | NUR ---
PT REPOSITIONED, ETT SUCTIONED, MODERATE AMOUNT OF BROWN SPUTUM OUT. AFTER CARES COMPLETED, MINUTE VENTILLATION DECREASED FROM >12 TO 9-10, SPO2 87-89%, SHORT PERIODS OF APNEA NOTED. PRECEDEX AND PROPOFOL DECREASED WITHOUT CHANGES. RT NOTIFIED, VENT SETTINGS CHANGED BY RT TO AC 20, Vt 350, FIO2 55% PEEP 8. PT'S RR 27, Vt 3500-400, SPO2 91% AFTER CHANGES MADE. PRECEDEX 0.2MCG, PROPOFOL 40MCG, PT RESTING QUIETLY WITHOUT S/SX AGITATION AT THIS TIME. ICE PACKS TO GROIN AND UNDER ARMS FOR PERSISTENT FEVER.
--- NOTE | 2019-02-11 19:03 | NUR ---
SLOWLY ATTEMPTED TO WEAN PT OFF OF SEDATION, BUT WITH REPOSITIONING OR CARE TREATMENTS, PT WOULD BECOME RESTLESS AND NEED INCREASE IN SEDATION. TRIALED PT'S VENT ON SPONTANOUS THIS AFTERNOON. PT TOLERATED FOR A FEW HOURS, BUT BEGAN TO DROP SATS AND HAVE SHORT APNIC EPISODES. RT CALLED TO PLACE PT BACK ON A/C.
--- NOTE | 2019-02-11 22:31 | NUR ---
ASSUMED CARE NOTE: ASSUMED CARE OF PT AT 1900, RECEVIED REPORT FROM DEMETRIO ARMAS. UPON ENTERING ROOM PT WAS ON VENT WITH SETTINGS AT AC20/350/8/50%, W/ SPO2 AT 90%. RT WAS CALLED DUE TO SP02 FALLING INTO THE 80S, FIO2 INCREASED TO 60% AND SPO2 IMPROVED AND IS REMAINING ABOVE 90%. PT IS ABLE TO RESPOND TO PAIN. PT IS UNABLE TO FOLLOW DIRECTIONS. PT FENTYNAL WAS DECREASED TO 25MCG/HR PER ORDER. WHILE DOING ASSESSMENT PT BEGAN TO THRASH AROUND IN BED. PROPOFOL WAS THEN INCREASED TO 60MCG/KG/MIN. PT IN NSR WITH HR IN THE 80'S. PT TEMP WAS 100.9 AT THE START OF SHIFT AND HAS SINCE DECREASED TO 99.6. PRECEDEX @ 0.2MCG/KG/HR. WILL CONTINUE TO MONITOR T/O SHIFT.
--- NOTE | 2019-02-11 23:44 | NUR ---
DR. SANTA NOTIFIED: RE: + MRSA NARES SWAB AND NEW RED TINGED SPUTUM OUT OF ET TUBE WHEN RT SUCTIONED PT AT 2300. SPUTUM CULTURE ORDERED. NEW ORDER TO CHANGE PEEP VENT SETTING BACK TO 10. ORDER aPTT AND INR IN AM. FENTANYL CLINICAL STAFF RN TO BE AT 50mcg/hr. PT PLACED IN ISOLATION WITH DROPLET PRECAUTIONS. RT NOTIFIED AND ADJUSTED VENT PEEP TO 10. SPUTUM SENT.
--- NOTE | 2019-02-12 01:13 | NUR ---
UPDATE: PT REMAINS ON VENT: A/C Vt 350, PEEP NOW [address] SANTA ORDER, FiO2 60%. PT NOW IN DROPLET ISOLATION FOR POSITIVE MRSA SWAB AND POSSIBLE MRSA IN SPUTUM. SPUTUM SAMPLE SENT VIA RT. PT REMAINS ON SEDATION-PROPOFOL 50mcg, PRECEDEX TITRATED BETWEEN 0.2-0.3 mcg/kg/hr FOR AGITATION. FENTANYL FLOTATION OPERATOR RETURNED TO 50mcg/hr PER DR. SANTA. PT CURRENTLY MORE RESTED WITH LESS EPISODES OF AGITATION. ATIVAN PRN. ICE PACKS TO AXILLARY AND GROIN SITES FOR GOAL TEMP 99.0. SEE FLOW CHART FOR VITALS AND TITRATIONS.
[2019-02-12 03:59] LABS: Hematocrit 31.2 % (37.0-53.0); Hemoglobin 10.2 g/dL (13.5-17.5); Mean Corpuscular HGB 30.8 pg (26.0-34.0); Mean Corpuscular HGB Conc 32.7 g/dL (31.5-36.5); NRBC ABSOLUTE 0.02 K/mm3 (0.00-0.02); NRBC Auto 0.1 /100 WBC (0.0-0.2); Platelet Count 154 K/mm3 (150-400); RDW Coefficient Variation 16.4 % (11.7-14.2); RDW Standard Deviation 57.5 fL (35.1-46.3); Red Blood Cell Count 3.31 M/mm3 (4.30-5.90); White Blood Cell Count 19.65 K/mm3 (4.00-11.30)
[2019-02-12 04:01] LABS: Mean Corpuscular Volume 94 fL (80-100)
[2019-02-12 04:14] LABS: International Normalized Ratio 1.02; Prothrombin Time Results 10.8 Sec (9.7-11.5)
[2019-02-12 04:16] LABS: Anion Gap 5 mmol/L (6-16); Blood Urea Nitrogen 44 mg/dL (8-24); Bun/Creatinine Ratio 47.2 (12.0-20.0); CO2, Blood 31 mmol/L (21-32); Calcium, Blood 7.5 mg/dL (8.5-10.1); Chloride, Blood 116 mmol/L (98-108); Creatinine, Blood 0.93 mg/dL (0.60-1.20); Glomerular Filtration Rate >60 (60-); Glucose, Blood 201 mg/dL (70-99); Magnesium, Blood 2.5 mg/dL (1.6-2.4); Phosphorus, Blood 2.4 mg/dL (2.5-4.9); Potassium, Blood 3.5 mmol/L (3.5-5.5); Sodium, Blood 152 mmol/L (136-145)
[2019-02-12 04:28] LABS: BAND PERCENT MAN 3 % (0-8); BASOPHILS PERCENT MAN 0 % (0-2); EOSINOPHILS ABSOLUTE MAN 0.19 K/mm3 (0.00-0.68); EOSINOPHILS PERCENT MAN 1 % (0-6); LYMPHOCYTES ABSOLUTE MAN 1.96 K/mm3 (0.84-5.20); LYMPHOCYTES PERCENT MAN 10 % (21-46); METAMYELOCYTE ABSOLUTE MAN 0.39 K/mm3 (0.00-0.00); METAMYELOCYTE PERCENT MAN 2 % (0-0); MONOCYTES ABSOLUTE MAN 0.58 K/mm3 (0.16-1.47); MONOCYTES PERCENT MAN 3 % (4-13); MYELOCYTE ABSOLUTE MAN 0.78 K/mm3 (0.00-0.00); MYELOCYTE PERCENT MAN 4 % (0-0); NEUTROPHILS ABSOLUTE MAN 15.72 K/mm3 (1.96-9.15); SEG NEUTROPHILS PERCENT MAN 77 % (41-73); TOTAL CELLS COUNTED 100
[2019-02-12 05:02] LABS: PCO2 Arterial 45.8 mmHg (35-45); PO2 Arterial 70.9 mmHg (80-100); pH Blood Arterial 7.46 (7.35-7.45)
--- NOTE | 2019-02-12 05:27 | NUR ---
SHIFT SUMMARY PT CONTINUES TO REPSOND TO PAIN, HOWEVER IS UNABLE TO FOLLOW DIRECTIONS. PT CONTINUES TO BE ON THE VENT WITH SETTINGS AT AC20/350/10/60%N (PEEP INCREASED BY RT DURING SHIFT). PT LUNG SOUNDS ARE DIMINISHED AND RALES WERE HEARD IN LOWER LOBES BILAT. PT HAS BEEN HAVING SCANT THICK ANDERSON/REDISH SPUTUM. SPUTUM SAMPLE WAS SENT TO LAB (AWAITING FOR RESULTS. PT WAS PLACED IN ISO DUE TO POSITIVE MRSA FOUND IN NARES. TF RUNNING AT GOAL OF 25ML/HR, RESIDUALS LESS THAN 5MLS, NO GI INTOLERANCE NOTED. KIMBALL PATENT AND DRAINING KIKI COLOR URINE. RECTAL TUBE IN PLACE WITH BROWN BM. PT HAS BEEN TOLERATING THE VENT WITH CURRENT SEDATION. FENTYNAL @ 50MCG/HR, PROPOFOL @ 5OMCG/KG/MIN, PRECEDEX @ 0.3 MCG/KG/HR. PT RECEVIED ATIVAN TWICE DURING SHIFT DUE TO PT AGITATION (THRASHING IN BED) PER EMAR. BED AT LOWEST LEVEL, SWR IN PLACE BILAT. WILL CONTINUE TO MONITOR UNTIL REPORT IS GIVEN TO ONCOMING SHIFT.
--- NOTE | 2019-02-12 08:19 | NUR ---
Received report from Nilda ARMAS. Patient sedated and intubated. He has 7.5 RET and 26cm at lips with vent setting AC 20, TV 350. FiO2 60% and PEEP 10.0 at sats 95%.He has RIJ quad lumen dressing intact and site WNL's and infusing Propofol at 6- mcg/kg/min, NS TKO x2, Precedex 0.7 m,cg/kg/hr, and Fentanyl 50mcg/hr. He has 16Fr temp lee draining green tinted urine and has temp of 99.5. He has rectal tube in place with small amout of lquid brown output. He OG in place with TF VHP at 25 goal rate and 30 ml/hr water flushed q4 with less than 20ml residuals. He has beem agitated and that why increase Precedex from 0.3 to 0.7 and gave 2mg ativan. He has been thrashing head back and forth and over breathing vent. Repositioned, oral care and cath care.
--- NOTE | 2019-02-12 10:00 | NUR ---
RT CHANGED MINUTE VOLUME TO 10 FROM 12. HE IS LESS AGITATED , PROPOFOL AT 60 MCG/KG/MIN, PRECEDEX 0.7 MCG/KG/HR. AT BEDSIDE. NO OTHER CURRENT CHANGES. CHANGED TF SETUP OUT AND HUNG NEW BOTTLE AND WATER.
--- NOTE | 2019-02-12 13:23 | NUR ---
Benavides in room at 1213 and changed patient to spntaneous mode, PS 8, FiO2 60% and PEEP 8. He has been climbing in temp and has had rapid increase to 102.2 and placed cooling fam, Ice and tylenol 650mg. Patient repositioned and currently calm.
--- NOTE | 2019-02-12 15:28 | NUR ---
Changed PROJECT PRODUCT MANAGER bag out for new. Gave 2mg ativan and decreased Propofol to 30mcg/kg/min and patuient muriel and relaxed. His temp has decreased to 101.6. He remains on Spontaneous mode no chnages, sats 94%.
--- NOTE | 2019-02-12 16:32 | NUR ---
Gave report to Jamal ARMAS. Patient remians on 30mcg/kg/min Propofol, Precedex 0.7 mcg/kg/hr, and gave another 2mg ativan, resting quietly and Temp 101.1
--- NOTE | 2019-02-12 21:38 | NUR ---
ASSUMED CARE NOTE: ASSUMED CARE OF PT AT 1900, RECEVIED REPORT FROM CARLITOS ARMAS. UPON ENTERING ROOM PT WAS ON VENT WITH SETTINGS AT PS 12/8 WITH FiO2 @ 60%. SHORTLY AFTER PT WAS PLACED ON AC VENT AC MODE, HOWEVER PT WAS UNABLE TO TOLERATE VENT AND WAS THEN SWITCHED BACK TO PRESSURE SUPPORT VENT MODE. PT'S SP02 REMAINS ABOVE 90%. PT IS ABLE TO RESPOND TO PAIN, HOWEVER IS UNABLE TO FOLLOW COMMANDS. AT THE START OF SHIFT PT WAS BEING SEDATED WITH 50MCG/KG/MIN OF PROPOFOL, 0.6MCG/KG/HR OF PRECEDEX AND 50MCG/HR FENTYNAL VIA ACCOUNT DEVELOPMENT REPRESENTATIVE PUMP. PROPFOL HAD TO BE INCREASED TO 50MCG/KG/MIN DUE TO PT'S INCREASING AGITATION AND VENT INTOLERANCE. PT WAS ALSO MEDICATED WITH ATIVAN PER EMAR. VSS. NSR WITH HR IN THE 70'S. TF RUNNING AT GOAL OF 25ML/HR WITH RESIDUALS BEING LESS THAN 5MLS. BED AT LOWEST LEVEL, BILAT SWR IN PLACE. WILL CONTINUE TO MONITOR PT T/O SHIFT.
--- NOTE | 2019-02-13 02:59 | NUR ---
UPDATE: AROUND 0200, PT WAS MOVING HEAD FROM SIDE TO AGGRESSIVLEY. PT WAS ALSO MOVING HANDS/FEET (NONPUROPUSFUL MOVEMENT). PROPOFOL HAD TO BE INCREASED TO 60MCG/KG/MIN DUE TO INCREASED AGITATION AND VENTILATIOR INTOLERANCE. AT THIS TIME PT WAS ALSO GIVEN ATIVAN PER EMAR. WILL CONTINUE TO ATTEMPT TO DECREASE PROPOFOL BEFORE END OF SHIFT. PT CURRENTLY ON 50MCG/HR OF FENTYNAL, 50MCG/KG/MIN OF PROPOFOL, AND 0.6/KG/HR OF PRECEDEX.
[2019-02-13 03:39] LABS: BASOPHILS ABSOLUTE AUTO 0.03 K/mm3 (0.00-0.23); BASOPHILS PERCENT AUTO 0 % (0-2); EOSINOPHILS PERCENT AUTO 1 % (0-6); Hematocrit 29.7 % (37.0-53.0); Hemoglobin 9.6 g/dL (13.5-17.5); IMMATURE GRAN PERCENT AUTO 8 % (0-1); LYMPHOCYTES PERCENT AUTO 9 % (21-46); MONOCYTES ABSOLUTE AUTO 0.44 K/mm3 (0.16-1.47); MONOCYTES PERCENT AUTO 3 % (4-13); Mean Corpuscular HGB 30.3 pg (26.0-34.0); Mean Corpuscular HGB Conc 32.3 g/dL (31.5-36.5); Mean Corpuscular Volume 94 fL (80-100); Mean Platelet Volume 11.8 fL (9.1-12.4); NEUTROPHILS ABSOLUTE AUTO 11.09 K/mm3 (1.96-9.15); NEUTROPHILS PERCENT AUTO 78 % (41-73); NRBC ABSOLUTE 0.02 K/mm3 (0.00-0.02); NRBC Auto 0.1 /100 WBC (0.0-0.2); Platelet Count 171 K/mm3 (150-400); RDW Coefficient Variation 15.9 % (11.7-14.2); RDW Standard Deviation 54.9 fL (35.1-46.3); Red Blood Cell Count 3.17 M/mm3 (4.30-5.90); White Blood Cell Count 14.26 K/mm3 (4.00-11.30)
[2019-02-13 03:57] LABS: Albumin, Blood 1.7 g/dL (3.4-5.0); Albumin/Globulin Ratio 0.5 (0.8-1.8); Alk Phos 94 U/L (50-136); Anion Gap 4 mmol/L (6-16); Aspartate Aminotrans (AST/SGOT 23 U/L (12-37); Bilirubin, Total 0.5 mg/dL (0.1-1.0); Blood Urea Nitrogen 43 mg/dL (8-24); Bun/Creatinine Ratio 46.6 (12.0-20.0); CO2, Blood 30 mmol/L (21-32); Calcium, Blood 7.2 mg/dL (8.5-10.1); Chloride, Blood 118 mmol/L (98-108); Creatinine, Blood 0.92 mg/dL (0.60-1.20); Globulin, Blood 3.3 g/dL (2.2-4.0); Glomerular Filtration Rate >60 (60-); Glucose, Blood 155 mg/dL (70-99); Magnesium, Blood 2.6 mg/dL (1.6-2.4); Phosphorus, Blood 3.2 mg/dL (2.5-4.9); Potassium, Blood 3.6 mmol/L (3.5-5.5); Sodium, Blood 152 mmol/L (136-145)
[2019-02-13 04:00] LABS: BAND PERCENT MAN 6 % (0-8); BASOPHILS PERCENT MAN 0 % (0-2); EOSINOPHILS PERCENT MAN 0 % (0-6); LYMPHOCYTES ABSOLUTE MAN 0.71 K/mm3 (0.84-5.20); LYMPHOCYTES PERCENT MAN 5 % (21-46); METAMYELOCYTE ABSOLUTE MAN 0.99 K/mm3 (0.00-0.00); METAMYELOCYTE PERCENT MAN 7 % (0-0); MONOCYTES ABSOLUTE MAN 0.14 K/mm3 (0.16-1.47); MONOCYTES PERCENT MAN 1 % (4-13); SEG NEUTROPHILS PERCENT MAN 81 % (41-73); TOTAL CELLS COUNTED 100
[2019-02-13 04:32] LABS: Alanine Aminotransfer (ALT/SGP 31 U/L (12-78)
[2019-02-13 05:04] LABS: PO2 Arterial 77.4 mmHg (80-100); pH Blood Arterial 7.47 (7.35-7.45)
--- NOTE | 2019-02-13 05:39 | NUR ---
SHIFT SUMMARY: NO ACUTE CHANGES SINCE LAST NOTE. PT CONTINUES TO BE ON VENT SETTING OF AC20/350/8/60%, WITH SPO2 ABOVE 90%. TUBE FEEDING RUNNING AT GOAL OF 25ML/HR WITH RESIDUALS LESS THAN 7MLS. COARSE LUNG SOUNDS T/O. WHITE ANDERSON SPUTUM NOTED. NRS WITH HR 60-70 BPM, VSS .KIMBALL PATENT AND DRANING KIKI COLOR URINE. RECTAL TUBE IN PLACE, AND BAG CHANGED. PT TEMP IS HAS REMAINED BELOW 99.7 AND IS CURRENTLY 98.6. PROPOFOL @ 40MCG/KG/MIN, PRECEDEX @ 0.4MCG/KG/HR, FENTYNAL @ 50MCG/HR. PT IS RESTING COMFORTABLY. BED AT LOWEST LEVEL, BILAT SWR IN PLACE. WILL CONTINUE TO MONITOR UNTIL REPORT IS GIVEN TO ONCOMING SHIFT.
--- NOTE | 2019-02-13 07:59 | NUR ---
Received report from Sherry ARMAS. Oral care, am care and cath care done. Dr Dawn in room and we placed on spontaneous mode , PS 8, FiO2 45% and PEEP 8.0 and sast 92-94%. We reduced Propofol to 30mcg/kg/min, Prededex increasedf to 0.7 mcg/kg/hr, 2mg ativan and currently calm and follws commands intermitently. He remains intubated with 7.5 ET and 26cm at lips. He has RIJ dressing intact and site WNL's and is infusing as above. He also has 20ga IV LHand is flushed and SL'd. 16Fr temp lee and temp 98.7. His rectal tube remains with darkgreen/brown liquid stool. Family just arrived and recieved report from Dr Dawn.
--- NOTE | 2019-02-13 09:43 | NUR ---
Readjusted ET to 25cm at lips per Dr He RT order and took several people to assist. Had Propofol on standby for 30 minutes and turned back on to 30 mcg/kg/min after he got agitated from adjustment. Precedex remains at 0.7 mcg/kg/hr. He has fianally relaxed and breathing calm now. No vent setting changes.
--- NOTE | 2019-02-13 11:54 | NUR ---
RT chnaged suction circuit out and he is biting on tube and bite block. He has thick pink secrtins in moderate amounts. No changes with vent or gtt and he has been calm. Medicated with 2mg Ativan to calm after curcuit change out. His temp hanging around 99.7 with cooling fan, sliked about this time yesterday. Family at bedside. Propofol at 30mcg/kg/min and currently sedated nicely.
--- NOTE | 2019-02-13 13:44 | NUR ---
Pateint has been restless a couple times and medicated with ativan and Fentanyl and is resting quietly. Vent change FiO2 40% for sats in the upper 90%'s. VSS no chnages in gtt since am. Family at bedside.
--- NOTE | 2019-02-13 16:26 | NUR ---
Gave report to rishabh ARMAS and repositioned patient with linen change. Patient remains calm with VSS. No changes in gtt and vent
--- NOTE | 2019-02-13 17:29 | NUR ---
CARE ASSUMED REPORT FROM CHANDA BRADFORD, ASSESSMENT COMPLETED. VENT SETTINGS SPONTANEOUS WITH PS 8, PEEP 8, FIO2 40%. PT'S RR LOW 20'S, SPO2 MID 90'S, Vt 500'S. TEMP 99.7, OTHER VSS, NSR. ETT SIZE 7.5, 25CM AT LIP, SECURED. LS CLEAR, DIM IN RIGHT BASE WITH FINE CRACKLES ON THE RIGHT. RECTAL TUBE AND KIMBALL SECURE, PATENT AND DRAINING TO GRAVITY. PT BECAME RESTLESS AFTER REPOSITIONING AND ASSESSMENT, MEDICATED WITH FENTANYL AND ATIVAN, CALMED QUICKLY AND IS NOW QUIET WITH NO AGITATION NOTED. FAN ON, WILL CONTINUE TO MONITOR.
--- NOTE | 2019-02-13 17:55 | NUR ---
1630: PROPOFOL 30MCG, PRECEDEX 0.7MCG.
--- NOTE | 2019-02-13 18:38 | NUR ---
PT BECOMING AGITATED, RR 30/MIN, Vt'S 400'S. MEDICATED WITH FENTANYL AND ATIVAN PER ORDERS, GTT'S AND VENT SETTINGS UNCHANGED. FAMILY AT BEDSIDE, REPORT TO ONCOMING SHIFT.
--- NOTE | 2019-02-13 19:30 | NUR ---
ASSUMED CARE RECEIVED REPORT FROM CHANDA WETZEL. PT IS LYING IN BED SEDATED, NO MOVEMENT NOTED, TOLERATING VENTILATOR, AND STABLE VITALS. HE IS INTUBATED WITH A 7.5 ETT, 25 @ THE TEETH. HE IS ON SPONTANEOUS 8/8, 40%. TIDAL VOLUMES ARE IN THE 500'S. CURRENT GTTPS: PRECEDEX 0.7MCG/KG/HR, PROPOFOL 30MCG/KG/MIN, AND NS TKO. HE IN SINUS RHYTHM, IN THE 70'S. HE HAS A PATENT AND DRAINING KIMBALL CATHETER. HE HAS VITAL HIGH PROTEIN TF INFUSING AT GOAL RATE 25MLHR, WITH Q4H 300ML FLUSHES VIA OG TUBE SECURED TO THE ETT. HE HAS A RECTAL TUBE THAT APPEARS TO BE PATENT AND DRAINING SEMI LIQUID STOOLS. HE BILATERAL SWB RESTRAINTS SECURED TO THE BED. HIS RIJ CVC SITE IS CDI, WNL. BED IS LOW AND LOCKED. AND DAUGHTER IN THE ROOM.
[2019-02-14 04:04] LABS: PO2 Arterial 74.1 mmHg (80-100); pH Blood Arterial 7.48 (7.35-7.45)
[2019-02-14 05:39] LABS: BASOPHILS ABSOLUTE AUTO 0.02 K/mm3 (0.00-0.23); BASOPHILS PERCENT AUTO 0 % (0-2); EOSINOPHILS ABSOLUTE AUTO 0.34 K/mm3 (0.00-0.68); EOSINOPHILS PERCENT AUTO 3 % (0-6); Hematocrit 27.6 % (37.0-53.0); Hemoglobin 8.9 g/dL (13.5-17.5); IMMATURE GRAN ABSOLUTE AUTO 0.71 K/mm3 (0.00-0.10); IMMATURE GRAN PERCENT AUTO 5 % (0-1); LYMPHOCYTES ABSOLUTE AUTO 1.21 K/mm3 (0.84-5.20); LYMPHOCYTES PERCENT AUTO 9 % (21-46); MONOCYTES ABSOLUTE AUTO 0.52 K/mm3 (0.16-1.47); MONOCYTES PERCENT AUTO 4 % (4-13); Mean Corpuscular HGB 29.6 pg (26.0-34.0); Mean Corpuscular HGB Conc 32.2 g/dL (31.5-36.5); Mean Corpuscular Volume 92 fL (80-100); Mean Platelet Volume 11.8 fL (9.1-12.4); NEUTROPHILS ABSOLUTE AUTO 10.72 K/mm3 (1.96-9.15); NEUTROPHILS PERCENT AUTO 79 % (41-73); Platelet Count 205 K/mm3 (150-400); RDW Coefficient Variation 15.6 % (11.7-14.2); RDW Standard Deviation 51.8 fL (35.1-46.3); Red Blood Cell Count 3.01 M/mm3 (4.30-5.90); White Blood Cell Count 13.52 K/mm3 (4.00-11.30)
[2019-02-14 05:54] LABS: Alanine Aminotransfer (ALT/SGP 36 U/L (12-78); Albumin, Blood 1.8 g/dL (3.4-5.0); Albumin/Globulin Ratio 0.5 (0.8-1.8); Alk Phos 104 U/L (50-136); Anion Gap 5 mmol/L (6-16); Aspartate Aminotrans (AST/SGOT 28 U/L (12-37); Bilirubin, Total 0.3 mg/dL (0.1-1.0); Blood Urea Nitrogen 37 mg/dL (8-24); Bun/Creatinine Ratio 45.8 (12.0-20.0); CO2, Blood 28 mmol/L (21-32); Calcium, Blood 7.7 mg/dL (8.5-10.1); Chloride, Blood 114 mmol/L (98-108); Creatinine, Blood 0.81 mg/dL (0.60-1.20); Globulin, Blood 3.4 g/dL (2.2-4.0); Glomerular Filtration Rate >60 (60-); Glucose, Blood 133 mg/dL (70-99); Magnesium, Blood 2.3 mg/dL (1.6-2.4); Phosphorus, Blood 3.7 mg/dL (2.5-4.9); Potassium, Blood 3.5 mmol/L (3.5-5.5); Sodium, Blood 147 mmol/L (136-145); Total Protein, Blood 5.2 g/dL (6.4-8.2)
--- NOTE | 2019-02-14 06:35 | NUR ---
SHIFT SUMMARY PT REMAINS INTUBATED ON VENTILATOR SETTINGS: SPONTANEOUS 11/18, 40% FIO2. CURRENT GTTPS: PROPOFOL 35MCG/KG/MIN, PRECEDEX 0.7MCG/KG/HR, AND NS TKO. PT HAS BEEN ADEQUATLY SEDATED, TOLERATING VENTILATOR WELL PULLING IN VT IN THE 500'S. DURING STIMULATION R/T TURNS/BATHS/CARE PT CAN BECOME AGITATED, FIGHTING VENTILATOR, MOVING ALL EXTREMETIES. ATIVAN AND FENTANYL PRN PUSHES WORK WELL. HE IS FOLLOWING SOME COMMANDS, LIKE SQUEEZING MY FINGERS AND LETTING GO, AND WILL OPEN HIS EYES OCCASIONALLY. BUT HE DOES NOT TRACK. HE HAS A POSTIVE CORNEAL REFLEX, BUT NEGATIVE BABINSKI. HE DOES NOT NOD OR SHAKE HIS HEAD IN RESPONSE TO YES/NO QUESTIONS. HE REMAINS IN SINUS RHYTHM WITH A CONTROLLED RATE, BLOOD PRESSURES HAVE BEEN STABLE ALL NIGHT. HIS SAT'S ARE MID TO HIGH 90'S AND HE SOUNDS DIMINISHED THROUGHOUT. HE IS PRODUCING LESS ANDERSON THICK SECRETIONS, AND NOW MORE CLEARISH/WHITE AND THIN. HE IS ON TUBE FEED, VITAL HIGH PROTEIN AT GOAL RATE 25ML/HR, WITH Q4H 300CC FLUSHES DUE TO HYPERNATREMIA - WHICH SODIUM IS IMPROVING (147 TODAY). DISTENDED, BUT NOT TOO FIRM - AND PATIENT DOESN'T GAURD DURING PALPATION. PT HAS A RECTAL TUBE THAT ONLY DRAINED MINIMAL LIQUID STOOLS. HE HAS A PATENT KIMBALL DRAINING 2000ML OF CLEAR, LIGHT GREEN URINE. SKIN IS OVERALL INTACT ASIDE HIS TANIA/BUTTUCKS AREA - LOTS OF EXCORIATION, AND A RASH ON THE COCCYX AREA, WELL THE LEFT SHOULDER. QUALITY SKIN CARE WAS DONE DURING BED BATH. BILATERAL SWB RESTRAINTS ARE SECURED TO BED AND PATIENT. CVC IN [facility] SITE IS CDI/WNL. LEFT HAND IV IS CDI/WNL. BED IS LOW AND LOCKED.
--- NOTE | 2019-02-14 07:18 | NUR ---
FENTANYL COMPOSITOR APPRENTICE WASTE FENTANYL COMPOSITOR APPRENTICE WAS WASTED AT END OF SHIFT, IT HAS BEEN DISCONTINUED YESTERDAY BUT NEVER GOT WASTED. THERE WAS 36.6ML LEFT IN THE BAG + TUBING. PRASANTH JOSHI RN - VERIFIED THIS WASTE.
--- NOTE | 2019-02-14 10:10 | NUR ---
ASSUMPTION OF CARE ASSUMED CARE OF PT AT 0700, INTUBATED AND SEDATED, VENT SET TO PS 8/8 Fi02 40%. PT SEDATED WITH PROPOFOL AND PRECEDEX (SEE FLOWSHEET), TOLERATING VENT WELL. PT BECOMES AGITATED WITH SOME NURSING CARE, PRN FENTANYL AND ATIVAN PROVIDED. LUNG SOUNDS ARE COARSE T/O AND SLIGHTLY DIMINISHED ON THE R SIDE. PLAN FOR SEDATION VACATION TODAY. HR AND BP STABLE. DR SHAW IN TO SEE PT AT 0945, VENT SETTINGS CHANGED TO PS 5/5, PROPOFOL PLACED ON SB. WILL MONITOR AND CONTINUTE TO CHECK NEURO STATUS. PER DR SHAW, CENTRAL LINE TO REMAIN IN PLACE AND CONSIDER PICC AT A LATER TIME. AT 1010, PT STARTED TO WAKE UP, NOT FOLLOWING COMMANDS, THRASHING IN BED, EYES OPEN, MOVING ALL EXTREMITIES INDEPENDENTLY. PT TOLERATING VENT, SOME COUGHING NOTED.
--- NOTE | 2019-02-14 10:30 | NUR ---
PT VERY AGITATED, THRASHING IN BED, EYES OPEN, NOT FOLLWOING ANY COMMANDS. DR SHAW NOTIFIED. PRECEDEX INCREASED TO 1.4MCG/KG/HR PER DR SHAW'S ORDERS. PROPOFOL RESUMED AT 50MCG. WILL TITRATE PROPOFOL DOWN TOLERATED. WILL KEEP ATIVAN TO A MINIMIN PER DR SHAW.
--- NOTE | 2019-02-14 12:23 | NUR ---
PRECEDEX AT 1.4MCG/KG/HR, PROPOFOL DECREASED TO 20MCG/KG/MIN. PT CALM WITH SOME RESTLESSNESS. VENT SETTINGS CHANGED TO PS 5, PEEP OF 5, PER DR ALVAREZ ORDERS; THEY WERE CHANGED TO AC SETTINGS BY COLIN AROUND 1100.
--- NOTE | 2019-02-14 13:53 | NUR ---
DR LOO IN TO SEE PT, UPDATED ON PTS STATUS, NO NEW ORDERS AT THIS TIME.
--- NOTE | 2019-02-14 18:28 | NUR ---
SHIFT SUMMARY PT REMAINS INTUBATED AND SEDATED, PROPOFOL @40 AND PRECEDEX @1.4, LUNG SOUNDS COARSE T/O BUT IMPROVED. VENT SET TO PS 5/5 Fi02 40%. VSS. SEDATION VACATION THIS SHIFT, PT DID NOT TOLERATE WELL, COUGHING ON VENT, THRASHING IN BED, NOT FOLLOWING DIRECTIONS. PT OPENS EYES TO NOXIOUS STIMULI, DOES NOT TRACK PEOPLE OR OBJECTS. CENTRAL LINE TO [facility] IN [place], DRESSING CHANGE THIS SHIFT. KIMBALL IN PLACE AND DRAINING YELLOW TO GREEN URINE. RECTAL TUBE IN PLACE AND DRAINING BROWNISH GREEN LIQUID STOOL. TUBE FEEDING AT GOAL RATE OF 25ml/hr WITH 300cc H2O FLUSH Q4H.
--- NOTE | 2019-02-14 19:00 | NUR ---
ASSUMED CARE ASSUMED CARE OF PATIENT. REMAINS INTUBATED- PS 5, PEEP 5, FIO2 35%. RR 18-24. SX MODERATE AMOUNT OF THICK TANNISH SPUTUM. SEDATED WITH PROPOFOL @ 40MCG/KG/MIN AND PRECEDEX @ 1.4MCG/KG/HR. OPENS EYES SLIGHTLY TO NOXIOUS STIMULI. NOT FOLLOWING COMMANDS. MOVES ALL EXTREMITES WEAKLY TO STIMULI- GROSS MOTOR MOVEMENT. NO GAG NOTED. POSITIVE COUGH. RUBY, 3MM. BILATERAL SOFT WRIST RESTRAINTS IN PLACE. MONITOR SHOWS NSR, RATE 60-70s. BP STABLE. AFEBRILE. OG WITH VITAL HIGH PROTEIN AT GOAL RATE OF 25CC/HR. 300CC H20 Q4H. KIMBALL PATENT AND DRAINING CLEAR YELLOW URINE. RIJ CENTRAL LINE NOTED. SEE SHIFT ASSESSMENT FOR FULL ASSESSMENT.
--- NOTE | 2019-02-15 01:40 | NUR ---
SEDATION ATTEMPTED TO TITRATE PROPOFOL DOWN TO 40MCG/KG/MIN AT 0055, BUT PT QUICKLY BECAME AGITATED AND RESTLESS. THRASHING HEAD BACK AND FORTH ON PILLOW AND PULLING AGAINST RESTRAINTS. PROPOFOL INCREASED BACK TO 50MCG/KG/MIN. WILL CONTINUE TO MONITOR.
[2019-02-15 03:37] LABS: BASOPHILS ABSOLUTE AUTO 0.04 K/mm3 (0.00-0.23); BASOPHILS PERCENT AUTO 0 % (0-2); EOSINOPHILS ABSOLUTE AUTO 0.52 K/mm3 (0.00-0.68); EOSINOPHILS PERCENT AUTO 4 % (0-6); Hematocrit 29.3 % (37.0-53.0); Hemoglobin 9.4 g/dL (13.5-17.5); IMMATURE GRAN ABSOLUTE AUTO 0.54 K/mm3 (0.00-0.10); IMMATURE GRAN PERCENT AUTO 5 % (0-1); LYMPHOCYTES ABSOLUTE AUTO 1.07 K/mm3 (0.84-5.20); LYMPHOCYTES PERCENT AUTO 9 % (21-46); MONOCYTES ABSOLUTE AUTO 0.63 K/mm3 (0.16-1.47); MONOCYTES PERCENT AUTO 5 % (4-13); Mean Corpuscular HGB 29.8 pg (26.0-34.0); Mean Corpuscular HGB Conc 32.1 g/dL (31.5-36.5); Mean Corpuscular Volume 93 fL (80-100); Mean Platelet Volume 11.4 fL (9.1-12.4); NEUTROPHILS ABSOLUTE AUTO 9.16 K/mm3 (1.96-9.15); NEUTROPHILS PERCENT AUTO 77 % (41-73); Platelet Count 267 K/mm3 (150-400); RDW Coefficient Variation 15.4 % (11.7-14.2); RDW Standard Deviation 51.5 fL (35.1-46.3); Red Blood Cell Count 3.15 M/mm3 (4.30-5.90); White Blood Cell Count 11.96 K/mm3 (4.00-11.30)
[2019-02-15 03:58] LABS: Anion Gap 6 mmol/L (6-16); Blood Urea Nitrogen 31 mg/dL (8-24); CO2, Blood 27 mmol/L (21-32); Calcium, Blood 7.7 mg/dL (8.5-10.1); Chloride, Blood 110 mmol/L (98-108); Creatinine, Blood 0.86 mg/dL (0.60-1.20); Glomerular Filtration Rate >60 (60-); Glucose, Blood 123 mg/dL (70-99); Magnesium, Blood 2.1 mg/dL (1.6-2.4); Phosphorus, Blood 3.9 mg/dL (2.5-4.9); Potassium, Blood 3.3 mmol/L (3.5-5.5); Sodium, Blood 143 mmol/L (136-145)
--- NOTE | 2019-02-15 06:14 | NUR ---
SHIFT SUMMARY NO ACUTE CHANGES DURING SHIFT. REMAINS INTUBATED- PS 5, PEEP 5, FIO2 35%. RR 18-26. SEDATED WITH PROPOFOL BETWEEN 40-50MCG/KG/MIN- NOW INFUSING @ 40MCG/KG/MIN. PRECEDEX CONTINUES @ 1.4MCG/KG/HR. MEDICATED WITH FENTANYL 50MCG IV X 4 DOSES FOR A CPOT OF 5 AND AN ADJUNCT TO SEDATION. MOVES ALL EXTREMITIES. OPENS EYES TO STIMULI- NOT TRACKING. SQUEEZED HAND X 1 DURING NOC, BUT THEN HASN'T FOLLOWED ANY OTHER COMMANDS. ATTEMPTS TO WEAN SEDATION DOWN RESULTED IN INCREASED AGITATION. BILATERAL SOFT WRIST RESTRAINTS REMAIN IN PLACE. VSS. TMAX 99.1F PER KIMBALL TEMP PROBE. OG WITH VITAL HIGH PROTEIN INFUSING AT GOAL RATE OF 25CC/HR WITH 300CC H20 Q4H. RESIDUAL <10CC. RECTAL TUBE WITH APPROXIMATELY 150CC LIQUID BROWN STOOL. KIMBALL PATENT AND DRAINING TO GRAVITY. KCL INFUSING PER ELECTROLYTE PROTOCOL. WILL REPORT TO DAY SHIFT RN WHEN AVAILABLE.
--- NOTE | 2019-02-15 10:19 | NUR ---
PT ASSESSED AT 0720. PT ON PROPOFOL AT 40MCG, PRECEDEX AT 1.4MCG FOR MECH VENT. PT AGITATED, AWAKE, NOT FOLLOWING DIRECTIONS. PROPOFOL PLACED ON STANDBY. AT 0825 PT STARTED FOLLOWING DIRCTIONS AND NODDING HEAD APPROPRIATELY TO QUESTIONS. DR SHAW CALLED AND GIVEN FULL UPDATE. ORDERS TO EXTUBATED TAKEN. PT EXTUBATED AT 0845. RESTRAINTS REMOVED. PT FOLLOWING SOME DIRECTIONS BUT VERY RESTLESS/AGITATED. PT FIRST PLACED ON 6L N/C W SATS 85-87%. RT THEN PLACED AIRVO AT 56% FIO2, FLOW. RATE 60. SATS 96-97%. PT STARTED TO CALM AFTER AIRVO PLACED. PT ENCOURAGED TO COUGH, COUGH WEAK BUT IMPROVING. PT'S CALLED AND AT BEDSIDE SOON AFTER UPDATE. PT NOW SITTING UP IN BED SLIGHTLY RESTLESS BUT FOLLOWING COMMANDS. ORIENTED TO SELF AND FAMILY ONLY. DR SHAW IN SEVERAL TIMES TO CHECK ON PT.
--- NOTE | 2019-02-15 13:00 | NUR ---
PT CONTINUES TO MAKE PROGRESS. FIO2 DECREASED TO 40% BY RT. PT PLACED IN CHAIR POSITION. RESTLESSNESS IMPROVING SLIGHTLY. DENIES SOB OR PAIN. NODS APPROPRIATELY. PT WITH EXPRESSIVE APHASIA. MOVING HANDS AND LEGS. APPEARING TO CLEAR COGNIITIVELY OVER THE PAST COUPLE OF HOURS.
--- NOTE | 2019-02-15 17:50 | NUR ---
PT HAS PROGRESSED WELL T/O THE SHIFT. PT EXTUBATED THIS AM AND PLACED ON AIRVO. FIO2 TITRATED DOWN TO 30%, FLOW IS DOWN TO 40L/MIN. PT'S STRENGTH HAS IMPROVED T/O SHIFT WELL. ABLE TO ASSIT WITH TURNS. COUGH STREGTHENING, STILL WET AND NON-PRODUCTIVE. PT'S COGNITIVE STATUS HAS ALSO IMPROVED. PT HAS BEEN FOLLOWING DIRECTIONS AND NODDING HEAD APPROPRIATELY TO QUESTIONS BUT NOW HAS STARTED SPEAKING ONE TO TWO WORD REPLIES. HE TOLD HIS DAUGHTER THIS EVENING THAT HE LOVED HER. TEMP SPIKED TO 101.7 THIS AFTERNOON AND HAS COME DOWN TO 100.4 WITH FAN. PT HAS BEEN KEPT STRICKLY NPO. SWALLOW EVAL AND PT/OT PLANNED FOR TOMORROW PER DR SHAW. PT'S HAS HAD APPROX 5 INCONTINENT LIQUID GREEN STOOLS THIS SHIFT. THIS HAS SEEMED TO SLOW DOWN.
--- NOTE | 2019-02-15 22:07 | NUR ---
ASSUMED PT CARE AT 1915 PT SITTING UP IN BED; APPEARS TO BE RESTLESS. ALERT AND ABLE TO FOLLOW COMMANDS. HOWEVER, PT APPEARS TO HAVE SOME EXPRESSIVE APHASIA HE HAS SOMETHING HE WANTS TO SAY, BUT CAN'T FIND THE WORDS AND THEN BECOMES FRUSTRATED WITH SELF. REASSURED PT THAT IT WILL TAKE TIME. HE IS ABLE TO ANSWER YES/NO QUESTIONS APPROPRIATELY. AT BEDSIDE AND ABLE TO HELP ASSIST WITH NEEDS. LUNG SOUNDS ARE CLEAR TO BILATERALLY UPPER LOBES WITH INSPIRATORY CRACKLES NOTED TO BILATERAL BASES; ENCOURAGED PT TO DEEP BREATHE AND COUGH; INCENTIVE SPIROMETER OBTAINED FOR BEDSIDE USE. AIRVO AT 40L/MIN WITH FIO2 34%; BIOX 95%. PT HAS WEAK COUGH THAT IS NON-PRODUCTIVE; ANSWERS "YES" WHEN ASKED IF IT HURTS TO COUGH; ENCOURAGED SPLINTING WITH PILLOW. PT ABLE TO FOLLOW DIRECTION APPROPRIATELY. NSR WITH HR 90'S; SBP 140'S. SKIN IS COOL/CLAMMY; TEMP 100.4. FAN IN PLACE AND BLANKETS REMOVED. PER REPORT PT HAS HAD MULTIPLE LOOSE STOOLS DURING THE DAY. SO FAR THIS SHIFT PT IS HAVING SMEARS. REDDENED RASH TO BACK, BUTTOCKS, AND GROIN AREA APPEARS TO BE FUNGAL VS EXCORIATION; WILL ASK FOR ORDERS FOR NYSTATIN CREAM. PT DENIES ANY PAIN. CENTRAL LINE PATENT TO RIGHT IJ. KIMBALL CATH IS PATENT AND DRAINING TO GRAVITY; CLEAR YELLOW WITH A GREEN TINT. CALL LIGHT LEFT WITHIN REACH; NO SIGNIFCANT CHANGES TO REPORT AT THIS TIME. WILL CONTINUE TO MONITOR.
[2019-02-16 04:16] LABS: BASOPHILS ABSOLUTE AUTO 0.04 K/mm3 (0.00-0.23); BASOPHILS PERCENT AUTO 0 % (0-2); EOSINOPHILS PERCENT AUTO 1 % (0-6); Hematocrit 32.4 % (37.0-53.0); Hemoglobin 10.6 g/dL (13.5-17.5); IMMATURE GRAN ABSOLUTE AUTO 0.51 K/mm3 (0.00-0.10); IMMATURE GRAN PERCENT AUTO 3 % (0-1); LYMPHOCYTES ABSOLUTE AUTO 1.03 K/mm3 (0.84-5.20); LYMPHOCYTES PERCENT AUTO 5 % (21-46); MONOCYTES ABSOLUTE AUTO 1.03 K/mm3 (0.16-1.47); MONOCYTES PERCENT AUTO 5 % (4-13); Mean Corpuscular HGB 28.9 pg (26.0-34.0); Mean Corpuscular HGB Conc 32.7 g/dL (31.5-36.5); Mean Platelet Volume 10.8 fL (9.1-12.4); NEUTROPHILS ABSOLUTE AUTO 16.25 K/mm3 (1.96-9.15); NEUTROPHILS PERCENT AUTO 86 % (41-73); Platelet Count 397 K/mm3 (150-400); RDW Coefficient Variation 14.6 % (11.7-14.2); RDW Standard Deviation 46.1 fL (35.1-46.3); Red Blood Cell Count 3.67 M/mm3 (4.30-5.90); White Blood Cell Count 18.96 K/mm3 (4.00-11.30)
[2019-02-16 04:17] LABS: Mean Corpuscular Volume 88 fL (80-100)
[2019-02-16 04:35] LABS: Anion Gap 9 mmol/L (6-16); Blood Urea Nitrogen 29 mg/dL (8-24); Bun/Creatinine Ratio 36.4 (12.0-20.0); CO2, Blood 22 mmol/L (21-32); Calcium, Blood 8.4 mg/dL (8.5-10.1); Chloride, Blood 110 mmol/L (98-108); Glomerular Filtration Rate >60 (60-); Glucose, Blood 108 mg/dL (70-99); Magnesium, Blood 2.2 mg/dL (1.6-2.4); Potassium, Blood 3.1 mmol/L (3.5-5.5); Sodium, Blood 141 mmol/L (136-145)
--- NOTE | 2019-02-16 05:15 | NUR ---
END OF SHIFT SUMMARY PT HAS BEEN AWAKE ALL NIGHT. REMAINS ALERT AND ABLE TO FOLLOW COMMANDS. VOCABULARY IS STARTING TO EXPAND; HOWEVER, PT IS STILL EXPERIENCING EXPRESSIVE APHASIA. PT HAS BEEN RESTLESS ALL NIGHT; CONSTANTLY NEEDING TO BE BOOSTED IN BED. HE HAS HAD ONE EPISODE OF LOOSE STOOL THAT WAS GREEN IN COLOR, WELL TWO SMEARS. PT CONTINUES WITH RED RASH TO TANIA/GROIN AND BUTTOCKS THAT APPEARS TO BE FUNGAL; ORDERS FROM DR. ALVARADO FOR NYSTATIN CREAM THREE TIMES A DAY. PT REMAINS NPO; HE HAS BEEN ASKING FOR WATER AND CHIPS. EDUCATED REGARDING ASPIRATION RISK AND PT VERBALIZED UNDERSTANDING. PER REPORT FROM CHANDA SORENSEN PT WAS GOING TO BE EVALUATED BY ST TODAY; HOWEVER, THERE ARE NO ORDERS INPUTTED. THEREFORE, WILL NOTIFY ONCOMING RN TO CLARIFY WITH PHYSICIAN. PT WAS PROVIDED WITH ORAL CARE AND MOUTH SWABS. LUNG SOUNDS HAVE BEEN CLEAR T/O ALL LOBES; INCENTIVE SPIROMETER AT BEDSIDE AND PT IS COMPLIANT WITH USE. PT TOOK OFF AIRVO WITH OXYGEN SATURATION REMAINING GREATER THAN 91%; THEREFORE, REMAINED OFF SINCE 0300. NSR WITH HR 80'S. KIMBALL CATHETER REMAINS PATENT AND DRAINING CLEAR YELLOW WITH A GREEN TINT TO GRAVITY. DENIES PAIN. AT BEDSIDE ALL NIGHT; APPROPRIATE WITH CARES. CALL LIGHT LEFT WITHIN REACH; WILL CONTINUE TO MONITOR UNTIL REPORT IS HANDED OFF TO ONCOMING SHIFT.
--- NOTE | 2019-02-16 08:18 | NUR ---
Patient up in chair. He was able to stand with minimal assist but 1 full assist with transfer. He tolerated tomato juice with straw and no coughing and was able to hold can and move toward mouth.. He has good strong cough and is able to clear throat. He also tolerated chocolate pudding, he has poor fine motor nad is a little shaky. He is alert and oriented to self, place, and family. He is on RA and sats 94% on RA and dropped to 91% with transfer. Had him stand with one assit and cleaned him up from dark green pasty stool, changed attends. Tamara ARMAS in room starting IV so can pull RIJ quad lumen CL.
--- NOTE | 2019-02-16 09:30 | NUR ---
Took patient to CT of head in wheelchair and transfered with one assist. We came back and transfered to chair and gave am meds. He became nauseated after meds and spit up a little fluid.
[2019-02-16 09:38] LABS: Percent Saturation 26.2 % (20.0-50.0)
--- NOTE | 2019-02-16 10:45 | NUR ---
Patient started to get anxious and we helped him back to bed. Placed on 3L for short period and recovered well. Dr Tian in room and writing new orders, VSS.
--- NOTE | 2019-02-16 12:56 | NUR ---
Vashti ARMAS pulled RIJ per guidcynthia and placed pertoleum dressing and op site. He remains laying flat for 20 minutes. Patient tolerated well. He continues on RA and sats 96%. He has tried eating little bites of food from lunch and tolerating without nausea.
--- NOTE | 2019-02-16 14:52 | NUR ---
Patient has been having soft pasty to liquid stools about every 2 hours, buttocks and ian area very escoriated and applying cream as needed and have changed line every time and attends. VSS. RA and sats mid to upper 90%'s.
--- NOTE | 2019-02-16 18:13 | NUR ---
Patient has been resting and has not had stool for several hour. He calls appropriately if he is incontinent. Pulled folley at 1530 and patient has urinal by bedside if needed. He remains on RA and sats mid 90%'s. VSS He has been able to hold conversation, but looses track at times during conversation and forgets what he was going to say. He has tolerated small amount of food and is able to drink with straw and manage self. He positions him self for comfort and is ussually sliding down in bed. he denies any pain or needs. He is improving his fine motor skills and daughter has been helping him. He has attends in place and are currently clean.
[2019-02-17 03:21] LABS: BASOPHILS ABSOLUTE AUTO 0.05 K/mm3 (0.00-0.23); BASOPHILS PERCENT AUTO 0 % (0-2); EOSINOPHILS ABSOLUTE AUTO 0.19 K/mm3 (0.00-0.68); EOSINOPHILS PERCENT AUTO 1 % (0-6); Hematocrit 33.5 % (37.0-53.0); Hemoglobin 10.8 g/dL (13.5-17.5); IMMATURE GRAN PERCENT AUTO 2 % (0-1); LYMPHOCYTES ABSOLUTE AUTO 1.13 K/mm3 (0.84-5.20); LYMPHOCYTES PERCENT AUTO 7 % (21-46); MONOCYTES ABSOLUTE AUTO 1.23 K/mm3 (0.16-1.47); MONOCYTES PERCENT AUTO 8 % (4-13); Mean Corpuscular HGB 29.5 pg (26.0-34.0); Mean Corpuscular HGB Conc 32.2 g/dL (31.5-36.5); Mean Platelet Volume 10.4 fL (9.1-12.4); NEUTROPHILS ABSOLUTE AUTO 13.36 K/mm3 (1.96-9.15); NEUTROPHILS PERCENT AUTO 82 % (41-73); Platelet Count 462 K/mm3 (150-400); RDW Standard Deviation 49.6 fL (35.1-46.3); Red Blood Cell Count 3.66 M/mm3 (4.30-5.90); White Blood Cell Count 16.26 K/mm3 (4.00-11.30)
[2019-02-17 03:27] LABS: Mean Corpuscular Volume 92 fL (80-100)
[2019-02-17 03:39] LABS: Alanine Aminotransfer (ALT/SGP 62 U/L (12-78); Albumin, Blood 2.3 g/dL (3.4-5.0); Albumin/Globulin Ratio 0.6 (0.8-1.8); Alk Phos 154 U/L (50-136); Anion Gap 8 mmol/L (6-16); Aspartate Aminotrans (AST/SGOT 35 U/L (12-37); Bilirubin, Total 0.7 mg/dL (0.1-1.0); Blood Urea Nitrogen 25 mg/dL (8-24); Bun/Creatinine Ratio 26.6 (12.0-20.0); CO2, Blood 23 mmol/L (21-32); Chloride, Blood 109 mmol/L (98-108); Cholesterol 316 mg/dL (50-200); Creatinine, Blood 0.94 mg/dL (0.60-1.20); Glomerular Filtration Rate >60 (60-); Glucose, Blood 129 mg/dL (70-99); HDL Cholesterol 21 mg/dL (>39); LDL/HDL RATIO 11.5; Low Density Lipoprotein Chol 241 mg/dL (0-110); Potassium, Blood 3.4 mmol/L (3.5-5.5); Sodium, Blood 140 mmol/L (136-145); Total Protein, Blood 6.3 g/dL (6.4-8.2); Triglycerides 270 mg/dL (30-160); Very Low Density Lipoprot Chol 54 mg/dL (6-32)
--- NOTE | 2019-02-17 05:31 | NUR ---
ASSUMED PT CARE/END OF SHIFT SUMMARY ASSUMED CARE AT 1915 FROM CHANDA BRADFORD. PT SITTING UP IN BED. ALERT AND ORIENTED; ABLE TO COMMUNICATE BASIC NEEDS. STILL STRUGGLING WITH APHASIA, BUT IMPROVING TREMENDOUSLY. PT REMAINS ON ROOM AIR; LUNG SOUNDS CLEAR T/O ALL LOBES. NSR WITH HR 90'S-100'S. BLOOD PRESSURES STABLE. REMAINS INCONTINENT OF BOTH BOWEL AND BLADDER; RASH TO GROIN/TANIA AREA/BUTTOCKS IS SLOWLY IMPROVING WITH NYSTATIN CREAM TID, WELL ROTATING WITH POWDER AFTER EACH INCONTINENT EPISODE. ONE SMALL LOOSE STOOL THIS SHIFT; REMAINS GREEN IN COLOR. PT ABLE TO MAKE SLIGHT POSITION CHANGES IN BED; AND MAJOR WITH DIRECTION. ATTEMPTED TO PLACE PILLOWS UNDER ONE SIDE OF PT; HOWEVER, HE ENDS UP AGAINST SIDERAIL D/T HOW RESTLESS HE IS. PT WAS GIVEN ONE DOSE OF MELATONIN 5MG AND ONE DOSE OF TRAZADONE 50MG FOR SLEEP PT HASN'T SLEPT SINCE EXTUBATION. PT STATES HE IS FEARFUL OF NOT WAKING UP; REASSURANCE WAS GIVEN THAT WE WERE MONITORING HIM, BUT PT WAS ALSO GIVEN UNDERSTANDING FROM STAFF. PT IS JUST NOW STARTING TO DOZE OFF. CALL LIGHT LEFT WITHIN REACH; WILL CONTINUE TO MONITOR UNTIL REPORT IS HANDED OFF TO ONCOMING RN.
--- NOTE | 2019-02-17 07:10 | NUR ---
START OF SHIFT NOTE: RECEIVED REPORT FROM GAMA MUSA RN, ASSUMED CARE, PATIENT IS AWAKE, ALERT AND ORIENTED, SLOW TO RESPOND, RA SATING IN UPPER 90'S, LUNG SOUNDS ARE CLEAR BUT DIMINISHED, ST WITH HR IN 107'S, AFEBRILE, DENIES PAIN, CALL LIGHT IN REACH, WILL CONTINUE TO MONITOR.
--- NOTE | 2019-02-17 08:48 | NUR ---
PATIENT UP IN CHAIR FOR BREAKFAST, EATING WITH GOOD APPETITE, ASKING FOR MORE MILK, TAKES AM MEDICATIONS WITHOUT ANY PROBLEMS SWALLOWING, NEEDS TO BE CHANGED D/T INCONTINENCE, SENNOKOT HELD D/T LOOSE STOOLS, CALL LIGHT IN REACH, WILL CONTINUE TO MONITOR.
--- NOTE | 2019-02-17 09:00 | NUR ---
DR. TEMPLETON IN TO SEE PATIENT, NEW ORDERS RECEIVED.
--- NOTE | 2019-02-17 10:21 | NUR ---
PT/OT IN TO WORK WITH PATIENT.
--- NOTE | 2019-02-17 14:57 | NUR ---
PT IN TO WORK WITH PATIENT, UP TO CHAIR, ALSO AMBULATED IN HALLWAY, NEEDS LOTS OF COACHING, RESTING COMFORTABLY, CALL LIGHT IN REACH, WILL CONTINUE TO MONITOR.
--- NOTE | 2019-02-17 17:02 | NUR ---
PATIENT CONTINUES UP IN CHAIR, AGREED TO REMAIN IN CHAIR UNTIL AFTER DINNER AND THEN GO BACK TO BED.
--- NOTE | 2019-02-17 17:44 | NUR ---
SHIFT SUMMARY NOTE: PATIENT IS ALERT, SLIGHTLY FORGETFUL, COOPERATIVE AND PLEASANT BUT SLOW TO FOLLOW COMMANDS AND ANSWER QUESTIONS, PT/OT IN THIS MORNING TO WORK WITH HIM AND GOT HIM UP TO CHAIR, ATE BREAKFAST IN CHAIR, BUT ASKED TO RETURN TO BED, PATIENT IS INCONTINENT AND UNABLE TO USE CALL LIGHT AND LET STAFF KNOW HE NEEDS TO BE CHANGED, CHECKED EVERY TWO HOURS FOR INCONTINENCE, ATTENDS IN PLACE, AM VIRGILIO HELD D/T FREQUENT LOOSE STOOLS, MD AWARE, PATIENT WORKED WITH PT AGAIN THIS AFTERNOON, AND AMBULATED IN HALLWAY, THEN UP IN CHAIR TO EAT DINNER, NO APPETITE, WILL RETURN TO BED AND CHECK AGAIN FOR INCONTINENCE, CONTINUES ON IV ZOSYN EVERY 8 HOURS, VSS, AFEBRILE, DENIES PAIN, FOR DETAILS SEE SHIFT ASSESSMENT DOCUMENTATION AND NURSES NOTES, CALL LIGHT IN REACH, WILL CONTINUE TO MONITOR AND GIVE REPORT TO ONCOMING PROFESSOR OF FRENCH.
--- NOTE | 2019-02-18 00:25 | NUR ---
ASSUMED PT CARE AT 1915 PT LYING IN BED WITH VISITORS AT BEDSIDE. PT ALERT AND ORIENTED AND ABLE TO MAKE NEEDS KNOWN. STILL STRUGGLING WITH APHASIA AND WORD FINDING; HOWEVER, ABLE TO ANSWER YES/NO QUESTIONS AND FOLLOW SIMPLE DIRECTION. PT HASN'T SLEPT SINCE HE WAS EXTUBATED ON 02/15; STATED THERE WAS A GIRL NAMED "ALEE" WHO WAS UPSET BECAUSE HER MOM WAS DYING AND THIS UPSET HIM. REASSURED PT THAT THERE WASN'T ANYONE NAMED ALEE ON THE UNIT, NOR WAS THERE ANYONE UPSET ABOUT THEIR MOM DYING. ENCOURAGED PT TO GET SOME SLEEP HE IS AT HIGH RISK FOR DELIRIUM SINCE HE HASN'T SLEPT. PT STATES HE IS SCARED TO GO TO SLEEP AND NOT WAKE UP. RECEIVED ORDERS FROM LACQUER MACHINE FEEDER, LAZ, FOR A ONE TIME DOSE OF AMBIEN 5MG. PT IS SL AT THIS TIME. REMAINS INCONTINENT OF BOWEL AND BLADDER. CALL LIGHT WITHIN REACH; WILL CONTINUE TO MONITOR PT AND HIS NEEDS D/T HIS COMMUNICATION DEFICIT. DENIES PAIN OR DISCOMFORT AT THIS TIME.
--- NOTE | 2019-02-18 05:44 | NUR ---
END OF SHIFT SUMMARY NO SIGNIFICANT CHANGES SINCE LAST ENTRY. APHASIA IS SIGNIFICANTLY IMPROVING. ABLE TO HOLD AND CARRY CONVERSATIONS. REMAINS INCONTINENT OF BOTH BOWEL AND BLADDER. PT UNABLE TO FEEL THE NEED IF HE HAS TO VOID OR HAVE A BOWEL MOVEMENT; NONETHELESS, HE IS UNABLE TO COMMUNICATE WITH STAFF WHEN HE NEEDS HIS ATTENDS CHANGED. RASH TO GROIN, TANIA AREA, AND BUTTOCKS IS SLOWLY IMPROVING; ALTERNATING BETWEEN NYSTATIN CREAM AND BABY POWDER. PT STILL HAS NOT SLEPT SINCE EXTUBATION ON 02/15. AMBIEN WAS UNSUCCESSFUL. PT SITTING UP IN BED WATCHING BED CURRENTLY. WILL CONTINUE TO MONITOR UNTIL REPORT IS HANDED OFF TO ONCOMING RN.
--- NOTE | 2019-02-18 07:20 | NUR ---
START OF SHIFT NOTE: RECEIVED REPORT FROM REBECCA MUSA RN, ASSUMED CARE, PATIENT IS AWAKE AND ALERT, ORIENTED TO PLACE, SELF, FAMILY, DENIES PAIN, AFEBRILE, PATIENT IS SLOW TO RESPOND WHEN ASKED A QUESTION, FOLLOWS COMMAND BUT HAS DELAY IN PROCESSING COMMANDS, LUNG SOUNDS ARE DIMINISHED BUT CLEAR, VSS, PATIENT CONTINUES TO HAVE LOOSE STOOLS, AND IS ALSO INCONTINENT OF URINE, PATIENT UP TO CHAIR FOR BREAKFAST, CALL LIGHT IN REACH, WILL CONTINUE TO MONITOR.
--- NOTE | 2019-02-18 07:55 | NUR ---
PHYSICAL THERAPY IN TO WORK WITH PATIENT, PATIENT AMBULATED IN HALLWAY WITH PT AND WALKER, SLIGHT SOB NOTED UPON RETURN TO ROOM, BACK TO CHAIR, AT BEDSIDE AT THIS TIME, CALL LIGHT IN REACH, WILL CONTINUE TO MONITOR.
--- NOTE | 2019-02-18 08:10 | NUR ---
COAGULATING OPERATOR HERE TO TAKE PATIENT TO 2 VIEW CHEST XRAY VIA WHEELCHAIR, PATIENT ABLE TO MOVE FROM CHAIR TO WHEELCHAIR WITH WALKER AND ONE ASSIST.
--- NOTE | 2019-02-18 09:21 | NUR ---
OT IN TO WORK WITH PATIENT, UP TO BSC, SMALL BM, HOWEVER, PATIENT STILL UNABLE TO TELL WHEN HE HAS TO USE THE BATHROOM.
--- NOTE | 2019-02-18 10:00 | NUR ---
DR. TEMPLETON IN TO SEE PATIENT, NEW ORDERS RECEIVED.
--- NOTE | 2019-02-18 13:15 | NUR ---
REPORT CALLED TO HOLA CONRAD RN, ON MEDICAL FLOOR, PATIENT WILL BE TRANSFERRED TO ROOM 304 VIA WHEELCHAIR.
--- NOTE | 2019-02-18 19:01 | NUR ---
SHIFT SUMMARY. 1312 PT TRANSFERED FROM ICU TO MEDICAL FLOOR VIA W/C. PT IS 1 ASSSIT WITH FWW, AMBER/[place] ALRM UTILIZED FOR SAFETY, PT DOES CALL WITH CALL LIGHT APPROPRIATLY. PT DENIES PAIN, SOB, N/V. AT BEDISIDE THIS AFTERNOON. NO NEW CHANGES OR CONCERNS.
[2019-02-19 04:49] LABS: BASOPHILS ABSOLUTE AUTO 0.07 K/mm3 (0.00-0.23); BASOPHILS PERCENT AUTO 1 % (0-2); EOSINOPHILS ABSOLUTE AUTO 0.42 K/mm3 (0.00-0.68); EOSINOPHILS PERCENT AUTO 4 % (0-6); Hematocrit 34.2 % (37.0-53.0); Hemoglobin 10.8 g/dL (13.5-17.5); IMMATURE GRAN ABSOLUTE AUTO 0.19 K/mm3 (0.00-0.10); IMMATURE GRAN PERCENT AUTO 2 % (0-1); LYMPHOCYTES ABSOLUTE AUTO 1.49 K/mm3 (0.84-5.20); LYMPHOCYTES PERCENT AUTO 13 % (21-46); MONOCYTES ABSOLUTE AUTO 1.23 K/mm3 (0.16-1.47); MONOCYTES PERCENT AUTO 11 % (4-13); Mean Corpuscular HGB 29.5 pg (26.0-34.0); Mean Corpuscular HGB Conc 31.6 g/dL (31.5-36.5); Mean Corpuscular Volume 93 fL (80-100); Mean Platelet Volume 10.3 fL (9.1-12.4); NEUTROPHILS ABSOLUTE AUTO 7.95 K/mm3 (1.96-9.15); NEUTROPHILS PERCENT AUTO 70 % (41-73); Platelet Count 635 K/mm3 (150-400); RDW Coefficient Variation 14.8 % (11.7-14.2); RDW Standard Deviation 50.4 fL (35.1-46.3); Red Blood Cell Count 3.66 M/mm3 (4.30-5.90); White Blood Cell Count 11.35 K/mm3 (4.00-11.30)
[2019-02-19 05:11] LABS: Alanine Aminotransfer (ALT/SGP 81 U/L (12-78); Albumin, Blood 2.5 g/dL (3.4-5.0); Albumin/Globulin Ratio 0.7 (0.8-1.8); Alk Phos 144 U/L (50-136); Anion Gap 8 mmol/L (6-16); Aspartate Aminotrans (AST/SGOT 37 U/L (12-37); Bilirubin, Total 0.5 mg/dL (0.1-1.0); Blood Urea Nitrogen 20 mg/dL (8-24); Bun/Creatinine Ratio 24.7 (12.0-20.0); CO2, Blood 21 mmol/L (21-32); Calcium, Blood 8.6 mg/dL (8.5-10.1); Chloride, Blood 111 mmol/L (98-108); Creatinine, Blood 0.81 mg/dL (0.60-1.20); Globulin, Blood 3.6 g/dL (2.2-4.0); Glomerular Filtration Rate >60 (60-); Glucose, Blood 119 mg/dL (70-99); Magnesium, Blood 2.2 mg/dL (1.6-2.4); Potassium, Blood 3.8 mmol/L (3.5-5.5); Sodium, Blood 140 mmol/L (136-145); Total Protein, Blood 6.1 g/dL (6.4-8.2)
--- NOTE | 2019-02-19 05:24 | NUR ---
PT A/O X2 TO SELF AND FAMILY. SLEPT WELL THROUGHOUT THE NIGHT. PT INCONTINENT AND BECAME FORGETFUL. ENROLLMENT MANAGER REPORTED HE MIGHT HAVE PEED IN HIS WATER CUP INSTEAD OF URINAL. PT TAKES A LITTLE WHILE TO RESPOND TO QUESTIONS. EARILER IN THE SHIFT PT COMPLAINED OF CHEST PAIN /. DENIED RADIATING TO SHOULDERS. HOWEVER, PT STATED PAIN HAS COMPLETELY GONE AWAY AFTER SITTING UP. VSS. WILL CONTINUE TO MONITOR.
--- NOTE | 2019-02-19 18:22 | NUR ---
SHIFT SUMMARY PT HAS BEEN SLEEPING MOST OF THE SHIFT. PT INCONTINENT/CONTINENT OF URINE. PT ORIENTED TO SELF AND FAMILY. REPORTED RIGHT DATE BUT THOUGHT WE WERE IN [place]. PT C/O PAIN IN EARS THAT INCREASES WITH EATING. THIS RN CALLED DR. TEMPLETON AND NOTIFIED HER OF PT'S COMPLAINT OF EAR PAIN. DR. TEMPLETON REPORTS SHE WOULD BE IN TO SEE PT. PT DECLINES TO GET UP IN CHAIR AND DECLINED SHOWER TODAY. PT DID AMBULATE IN THE [place] WITH PHYSICAL THERAPY THIS SHIFT. NO ACUTE CHANGES. CALL LIGHT IN REACH. WILL CONTINUE TO MONITOR AND REPORT TO ONCOMING RN. BED ALARM ON FOR SAFETY.
[2019-02-20 05:03] LABS: BASOPHILS ABSOLUTE AUTO 0.07 K/mm3 (0.00-0.23); BASOPHILS PERCENT AUTO 1 % (0-2); EOSINOPHILS ABSOLUTE AUTO 0.42 K/mm3 (0.00-0.68); EOSINOPHILS PERCENT AUTO 4 % (0-6); Hematocrit 34.6 % (37.0-53.0); Hemoglobin 10.9 g/dL (13.5-17.5); IMMATURE GRAN ABSOLUTE AUTO 0.15 K/mm3 (0.00-0.10); IMMATURE GRAN PERCENT AUTO 1 % (0-1); LYMPHOCYTES ABSOLUTE AUTO 1.47 K/mm3 (0.84-5.20); LYMPHOCYTES PERCENT AUTO 14 % (21-46); MONOCYTES ABSOLUTE AUTO 1.09 K/mm3 (0.16-1.47); MONOCYTES PERCENT AUTO 10 % (4-13); Mean Corpuscular HGB 29.3 pg (26.0-34.0); Mean Corpuscular HGB Conc 31.5 g/dL (31.5-36.5); Mean Corpuscular Volume 93 fL (80-100); Mean Platelet Volume 10.1 fL (9.1-12.4); NEUTROPHILS ABSOLUTE AUTO 7.33 K/mm3 (1.96-9.15); NEUTROPHILS PERCENT AUTO 70 % (41-73); Platelet Count 612 K/mm3 (150-400); RDW Coefficient Variation 14.8 % (11.7-14.2); RDW Standard Deviation 49.8 fL (35.1-46.3); Red Blood Cell Count 3.72 M/mm3 (4.30-5.90); White Blood Cell Count 10.53 K/mm3 (4.00-11.30)
--- NOTE | 2019-02-20 05:13 | NUR ---
MEDICAL SERVICES ASSISTANT SUMMARY PT ABLE TO PROVIDE THE RIGHT ANSWERS TO WHAT MONTH WE ARE IN, WHO THE PRESIDENT IS, AND WHERE HE IS. DENIED PAIN AND SOB. PT ENCOURAGED TO STAND UP AND USE THE BATHROOM. PT HAS CALLED APPROPRIATLY AND WAS CONTINENT THROUGHOUT THE NIGHT. ABLE TO HOLD LONGER SENTENCES AND WAS QUICKER TO RESPOND. NO ACUTE CHANGES NOTED. WILL CONTINUE TO MONITOR.
[2019-02-20 05:23] LABS: Alanine Aminotransfer (ALT/SGP 75 U/L (12-78); Albumin, Blood 2.6 g/dL (3.4-5.0); Albumin/Globulin Ratio 0.7 (0.8-1.8); Alk Phos 141 U/L (50-136); Anion Gap 6 mmol/L (6-16); Aspartate Aminotrans (AST/SGOT 28 U/L (12-37); Bilirubin, Total 0.4 mg/dL (0.1-1.0); Blood Urea Nitrogen 19 mg/dL (8-24); Bun/Creatinine Ratio 20.6 (12.0-20.0); CO2, Blood 24 mmol/L (21-32); Calcium, Blood 8.4 mg/dL (8.5-10.1); Chloride, Blood 107 mmol/L (98-108); Creatinine, Blood 0.92 mg/dL (0.60-1.20); Globulin, Blood 3.6 g/dL (2.2-4.0); Glomerular Filtration Rate >60 (60-); Glucose, Blood 139 mg/dL (70-99); Potassium, Blood 3.8 mmol/L (3.5-5.5); Sodium, Blood 137 mmol/L (136-145); Total Protein, Blood 6.2 g/dL (6.4-8.2)
--- NOTE | 2019-02-20 17:35 | NUR ---
SHIFT SUMMARY PT HAS BEEN MORE ALERT AND ORIENTED THIS SHIFT THAN YESTERDAY. PT CONTINUES TO C/O PAIN IN EAR WHEN CHEWING. DR. JESUS ASSESSED PT AND FOUND THAT IT WAS NOT EAR RELATED BUT MAY BE A TEMPOROMANDIBULAR JOINT. THIS RN HAS ADMINISTERED TYLENOL AND IBUPROFEN TO HELP WITH THE DISCOMFORT WITH CHEWING. PT HAD INCONTINENCE OF STOOL X1 THIS SHIFT. NO FURTHER CHANGES OR COMPLAINTS. POSSIBLE PLANS FOR PT TO BE DISCHARGED TO HOME TOMORROW. CALL LIGHT IN REACH AND BED ALARM ON FOR SAFETY. WILL CONTINUE TO MONITOR AND REPORT TO ONCOMING RN.
--- NOTE | 2019-02-21 05:45 | NUR ---
SUMMARY: MENTATION CONTINUES TO IMPROVE W/APPROPRIATE INTERACTIONS HAD AND HE'S NOW A/OX3 W/O S/S CONFUSION THIS SHIFT. HE CONT'S TO HAVE DELAYED RESPONSES BUT ANSWERS Q'S CORRECTLY. PT REMAINS SBA D/T DECONDITIONING. TANIA AREA AND BUTTOCKS REMAIN RED AND EXCORIATED BUT ARE IMPROVING. HE CONT'S TO REPORT JAW ACHE BUT STATED MOTRIN WAS EFFECTIVE ON DAY SHIFT AND HASN'T REQUIRED ANYTHING PRN SINCE. MELATONIN WAS RECIEVED AT HS PRN PER PT REQUEST AND HE APPEARED TO HAVE SLEPT WELL. PT DENIED COMPLAINTS. NO ACUTE CHANGES, VSS/AFEBRILE. POSSIBLE D/C HOME TODAY.
[2019-02-21] MEDS ORDERED: ACET325 PO (12:05)
[2019-02-21] MEDS ORDERED: ASPI81CH PO (12:13)
[2019-02-21] MEDS ORDERED: ATOR10 PO (12:14)
[2019-02-21] MEDS ORDERED: Vsl#3 Capsule1 EACH PO (12:15)
[2019-02-21] MEDS ORDERED: MELATONIN5 M1 PO (12:16)
[2019-02-21] MEDS ORDERED: ALBU90OI INH (12:17)
[2019-02-21] MEDS ORDERED: Nystatin15 GM TOP (12:17)
--- NOTE | 2019-02-21 14:16 | NUR ---
PATIENT DISCHARGE: PATIENT DISCHARGED TO HOME THIS SHIFT. MEDICATION RECONCILIATION COMPLETED; MED LIST FAXED TO [facility]. DISCHARGE EDUCATION COMPLETED WITH PATIENT. PATIENT TRANSPORTED TO EXIT BY [facility] WITH WHEELCHAIR AT 1345. PATIENT DEPARTED [facility] VIA PRIVATE AUTO[facility]
== END 2019-02-21 13:45 | disposition home or self-care (01) | DRG 870 ==
LOC: ER 18:08 → MEDS 20:40 → ICUW 20:40 → MEDS 21:15 → PCU 02-07 18:02 → ICUW 02-07 22:09 → MEDS 02-18 13:20
PROVIDERS: Internal Medicine; Internal Medicine Critical Care Medicine; Internal Medicine Pulmonary Disease; Nurse Practitioner Acute Care; Physician Assistant; ADMIT Internal Medicine
PROC: 5A09357 Assistance with Respiratory Ventilation, Less than 24 Consecutive Hours, Continuous Positive Airway Pressure (ICD-10-PCS; principal; 2019-02-07)
PROC: 02HV33Z Insertion of Infusion Device into Superior Vena Cava, Percutaneous Approach (ICD-10-PCS; 2019-02-08)
PROC: 5A1955Z Respiratory Ventilation, Greater than 96 Consecutive Hours (ICD-10-PCS; 2019-02-08)
PROC: 0BH17EZ Insertion of Endotracheal Airway into Trachea, Via Natural or Artificial Opening (ICD-10-PCS; 2019-02-08)
DX: A41.9 Sepsis, unspecified organism (principal); J96.01 Acute respiratory failure with hypoxia; I21.A1 Myocardial infarction type 2; J69.0 Pneumonitis due to inhalation of food and vomit; E87.0 Hyperosmolality and hypernatremia; R47.01 Aphasia; G45.9 Transient cerebral ischemic attack, unspecified; K52.1 Toxic gastroenteritis and colitis; Z85.528 Personal history of other malignant neoplasm of kidney; F17.210 Nicotine dependence, cigarettes, uncomplicated; Z90.49 Acquired absence of other specified parts of digestive tract; F17.290 Nicotine dependence, other tobacco product, uncomplicated; K20.9 Esophagitis, unspecified; I95.9 Hypotension, unspecified; D69.6 Thrombocytopenia, unspecified; Z85.068 Personal history of other malignant neoplasm of small intestine; F32.9 Major depressive disorder, single episode, unspecified; R45.1 Restlessness and agitation; G47.00 Insomnia, unspecified; D63.8 Anemia in other chronic diseases classified elsewhere; M26.629 Arthralgia of temporomandibular joint, unspecified side; T36.95XA Adverse effect of unspecified systemic antibiotic, initial encounter; Y92.239 Unspecified place in hospital as the place of occurrence of the external cause
CPT/HCPCS: 31500; 31720; 36415; 36556; 36600; 51702; 70450; 71045; 71046; 71260; 80048; 80053; 80061; 80202; 82330; 82550; 82607; 82728; 82746; 82803; 82947; 83540; 83550; 83605; 83735; 83880; 84100; 84145; 84484; 85025; 85379; 85610; 85730; 87040; 87070; 87205; 87449; 87493; 87804; 93005; 93010; 93306; 94002; 94003; 94640; 94660; 94760; 94762; 96361; 96365-59; 97110; 97116; 97162; 97166; 97530; 97535; 99285-25; A9270; C1751; C9113; J0330; J0456; J0696; J1650; J1815; J1940; J2060; J2250; J2543; J2704; J2920; J3010; J3370; J3480; J7030; J7050; J7060; Q9967